=== PATIENT | female | born 1970 | race African-American/Black ===

== ENCOUNTER 2017-03-30 14:36 | Inpatient (IN) | payer SELFPAY ==
[~2017-03-30] VITALS: Ht 160 cm; Wt 74.8 kg
--- NOTE | 2017-03-30 15:14 | EKG ---
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
[2017-03-30 15:26] LABS: BASO % 0 % (0-3); EOS % 0 % (0-3); HEMATOCRIT 26.1 % (36.0-47.0); HEMOGLOBIN 8.9 g/dL (12.0-15.5); LYMPH # 0.6 x10^3/uL (1.0-4.8); LYMPH % 8 % (24-48); MEAN CORPUSCULAR HEMOGLOBIN 36 pg (25-35); MEAN CORPUSCULAR HGB CONC 34 g/dL (31-37); MEAN CORPUSCULAR VOLUME 105 fL (79-100); MONO % 3 % (0-9); NEUT % 88 % (31-73); PLATELET COUNT 124 x10^3/uL (140-400); RED BLOOD COUNT 2.49 x10^6/uL (3.50-5.40); RED CELL DISTRIBUTION WIDTH 15.9 % (11.5-14.5); WHITE BLOOD COUNT 6.8 x10^3/uL (4.0-11.0)
[2017-03-30 15:27] LABS: BILIRUBIN,URINE SMALL (NEG); GLUCOSE,URINE NEGATIVE (NEG); NITRITE,URINE POSITIVE (NEG); PROTEIN,URINE >=300 mg/dL (NEG-TRACE)
--- NOTE | 2017-03-30 15:29 | RAD ---
Indication: Cough and low blood pressure. Time of exam 1317 hours. Correlation is made with prior study from 07/10/2010. FINDINGS: The heart size is normal. The lungs are clear. No pleural effusion or pneumothorax is identified. The pulmonary vascularity is normal. IMPRESSION: No acute abnormality detected.
[2017-03-30] MEDS ORDERED: ACETAMINOPHEN 500 MG TABLET PO ONE (15:30)
[2017-03-30] MEDS: IV NORMAL SALINE 1000ML BAG 1,000 ML IV SCH ×3 (15:33→18:12)
[2017-03-30 15:38] LABS: BACTERIA,URINE MANY /HPF (0-FEW); WBC,URINE >40 /HPF (0-4)
--- NOTE | 2017-03-30 15:40 | PHYS DOC ---
Past Medical History Past Medical History: Alcoholism, Depression, Hypertension, Seizure Additional Past Surgical Histo: facial fracture Alcohol Use: Heavy Additional Information: pint per day Drug Use: None Adult General Chief Complaint Chief Complaint: FEVER HPI HPI Patient is a 46 year old female who presents with complaint of cough, fever, and dysuria for the past 2 days. Patient states she started having trouble 5 days ago with cough and throat dryness. Patient develop fevers starting yesterday and has had worsening difficulty with generalized weakness, fatigue, and dehydration. Patient states that she's had decreased appetite. Patient notes that she is having upper abdominal pain at this time which she attributes to not being able to eat. Patient denies any shortness of breath or chest pain at this time. The patient states that she may have urinary tract infection as she has had increased urinary frequency and dysuria. Patient has not taken any medications to help with symptoms at this time. Review of Systems Review of Systems Constitutional: Fever, generalized fatigue [] Eyes: Denies change in visual acuity, redness, or eye pain [] HENT: Denies nasal congestion or sore throat [] Respiratory: Cough [] Cardiovascular: Denies chest pain or edema [] GI: Abdominal pain, denies nausea, vomiting, bloody stools or diarrhea [] : Dysuria, increased urinary frequency [] Musculoskeletal: Denies back pain or joint pain [] Integument: Denies rash or skin lesions [] Neurologic: Denies headache, focal weakness or sensory changes [] Current Medications Current Medications Current Medications Medications (Trade) Dose Ordered Sig/[facility] Start Time Stop Time Status Last Admin Dose Admin Acetaminophen (Tylenol) 1,000 mg 1X ONCE 03/30/17 15:30 03/30/17 15:31 DC 03/30/17 15:34 1,000 MG Sodium Chloride 1,000 ml @ 1,095 mls/hr Q55M 03/30/17 15:09 03/30/17 17:09 DC 03/30/17 16:17 1,095 MLS/HR Allergies Allergies Allergies Coded Allergies Type Severity Reaction Last Updated Verified No Known Drug Allergies 03/30/17 No Physical Exam Physical Exam Constitutional: Alert, febrile, tachycardic, appears ill. [] HENT: Normocephalic, atraumatic, bilateral external ears normal, oropharynx moist, no oral exudates, nose normal. [] Eyes: PERRLA, EOMI, conjunctiva normal, no discharge. [] Neck: Normal range of motion, no tenderness, supple, no stridor. [] Cardiovascular: Tachycardia, regular rhythm, no murmur [] Lungs & Thorax: Bilateral breath sounds clear to auscultation [] Abdomen: Bowel sounds normal, soft, epigastric tenderness to palpation with guarding, no rebound tenderness, no masses, no pulsatile masses. [] Skin: Warm, dry, no erythema, no rash. [] Back: No tenderness, no CVA tenderness. [] Extremities: No tenderness, no cyanosis, no clubbing, ROM intact, no edema. [] Neurologic: Alert and oriented X 3, normal motor function, normal sensory function, no focal deficits noted. [] Current Patient Data Vital Signs Vital Signs Date Time Temp Pulse Resp B/P (MAP) Pulse Ox O2 Delivery O2 Flow Rate FiO2 03/30/17 16:00 127 122/66 (84) 100 Room Air 03/30/17 14:45 100.3 20 100.3 Lab Values Laboratory Tests Test 03/30/17 14:55 White Blood Count 6.8 x10^3/uL (4.0-11.0) Red Blood Count 2.49 x10^6/uL (3.50-5.40) L Hemoglobin 8.9 g/dL (12.0-15.5) L Hematocrit 26.1 % (36.0-47.0) L Mean Corpuscular Volume 105 fL (79-100) H Mean Corpuscular Hemoglobin 36 pg (25-35) H Mean Corpuscular Hemoglobin Concent 34 g/dL (31-37) Red Cell Distribution Width 15.9 % (11.5-14.5) H Platelet Count 124 x10^3/uL (140-400) L Neutrophils (%) (Auto) 88 % (31-73) H Lymphocytes (%) (Auto) 8 % (24-48) L Monocytes (%) (Auto) 3 % (0-9) Eosinophils (%) (Auto) 0 % (0-3) Basophils (%) (Auto) 0 % (0-3) Neutrophils # (Auto) 6.0 x10^3uL (1.8-7.7) Lymphocytes # (Auto) 0.6 x10^3/uL (1.0-4.8) L Monocytes # (Auto) 0.2 x10^3/uL (0.0-1.1) Eosinophils # (Auto) 0.0 x10^3/uL (0.0-0.7) Basophils # (Auto) 0.0 x10^3/uL (0.0-0.2) Segmented Neutrophils % 56 % (35-66) Band Neutrophils % 33 % (0-9) H Lymphocytes % 6 % (24-48) L Monocytes % 5 % (0-10) Toxic Granulation Present Toxic Vacuolation Present Dohle Bodies Present Platelet Estimate Adequate (ADEQUATE) Macrocytosis Slight Urine Collection Type Unknown Urine Color [place] Urine Clarity Cloudy Urine pH 7.0 Urine Specific [place] 1.015 Urine Protein >=300 mg/dL (NEG-TRACE) Urine Glucose (UA) Negative mg/dL (NEG) Urine Ketones (Stick) Negative mg/dL (NEG) Urine Blood Moderate (NEG) Urine Nitrite Positive (NEG) Urine Bilirubin Small (NEG) Urine Urobilinogen Dipstick 1.0 mg/dL (0.2 mg/dL) Urine Leukocyte Esterase Large (NEG) Urine RBC 3-5 /HPF (0-2) Urine WBC >40 /HPF (0-4) Urine Bacteria Many /HPF (0-FEW) Sodium Level 138 mmol/L (136-145) Potassium Level 2.2 mmol/L (3.5-5.1) *L Chloride Level 95 mmol/L (98-107) L Carbon Dioxide Level 30 mmol/L (21-32) Anion Gap 13 (6-14) Blood Urea Nitrogen 14 mg/dL (7-20) Creatinine 1.0 mg/dL (0.6-1.0) Estimated GFR (Cockcroft-Gault) 71.9 BUN/Creatinine Ratio 14 (6-20) Glucose Level 121 mg/dL (70-99) H Lactic Acid Level 3.9 mmol/L (0.4-2.0) H Calcium Level 7.7 mg/dL (8.5-10.1) L Total Bilirubin 1.6 mg/dL (0.2-1.0) H Aspartate Amino Transferase (AST) 78 U/L (15-37) H Alanine Aminotransferase (ALT) 35 U/L (14-59) Alkaline Phosphatase 260 U/L (46-116) H Total Protein 7.7 g/dL (6.4-8.2) Albumin 2.5 g/dL (3.4-5.0) L Albumin/Globulin Ratio 0.5 (1.0-1.7) L Procalcitonin 1.43 ng/mL (0.00-0.10) H Laboratory Tests 03/30/17 14:55 Laboratory Tests 03/30/17 14:55 EKG EKG Interpreted by me: Heart rate 149 bpm, sinus tachycardia, normal intervals, normal axis, no acute ST/T-wave abnormalities present [] Radiology/Procedures Radiology/Procedures [place] [id number] IMAGING REPORT Signed PATIENT: MU OSMAN ACCOUNT: [id number] : 1970 LOCATION: ER AGE: 46 SEX: F EXAM STATUS: PRE ER ORD. PHYSICIAN: HALIE MERAZ MD REASON: cough, fever PROCEDURE: PORTABLE CHEST 1V Indication: Cough and low blood pressure. Time of exam 1317 hours. Correlation is made with prior study from 07/10/2010. FINDINGS: The heart size is normal. The lungs are clear. No pleural effusion or pneumothorax is identified. The pulmonary vascularity is normal. IMPRESSION: No acute abnormality detected. DICTATED and SIGNED BY: VANNA RAI MD DATE: 03/30/17 152 CC: HALIE MERAZ MD ~ [address] [id number] IMAGING REPORT Signed PATIENT: MU OSMAN ACCOUNT: [id number] : 1970 LOCATION: [address] [place] [address] AGE: 46 SEX: F EXAM STATUS: ADM IN ORD. PHYSICIAN: HALIE MERAZ MD REASON: fever, epigastric pain PROCEDURE: CT ABD PELV W/ IV CONTRST ONLY CT Abdomen and Pelvis With Intravenous Contrast: History: Weakness and fever, epigastric pain for 4 days. Comparison: None. Technique: After administration of intravenous contrast administration, 75 mL Omnipaque-300, CT of the abdomen and pelvis was performed. Exposure: One or more of the following individualized dose reduction techniques were utilized for this examination: 1. Automated exposure control 2. Adjustment of the mA and/or kV according to patient size 3. Use of iterative reconstruction technique Findings: Evaluation of enteric structures may be limited by lack of oral contrast. Liver, spleen, pancreas, and bilateral adrenal glands are unremarkable. Cholelithiasis is seen. No bowel obstruction or inflammation is identified. Urinary bladder is unremarkable. Intrauterine device is present. Appendix is without evidence of inflammation. The left kidney appears mildly enlarged and demonstrates slightly heterogeneous phase of enhancement relative to the contralateral side. There is also mild left perinephric stranding. Findings are thought to represent changes of pyelonephritis. No convincing urinary stone is identified. Impression: 1. Mild inflammatory change involving the left kidney, favored to represent left pyelonephritis. Electronically signed by: Romero Loja MD (03/30/2017 5:09 PM) DICTATED and SIGNED BY: ROMERO LOJA MD DATE: 03/30/171703 CC: HALIE MERAZ MD; AICHA MONTENEGRO MD; UNKNOWN PCP NAME ~ [] Course & Med Decision Making Course & Med Decision Making Pertinent Labs and Imaging studies reviewed. (See chart for details) Patient was started on a 30 mL per kilo bolus of IV fluids as patient met criteria for severe sepsis with elevated lactic acid level, fever, and tachycardia. Patient's tachycardia is improving with IV fluids. Patient also started on 40 mEq of oral potassium for replacement. Patient was found have evidence of urinary tract infection. CT confirmed left sided acute pyelonephritis. Patient started on IV Rocephin. The patient will require admission to the hospital for further treatment. I spoke with Dr. Montenegro who accepted care patient in hospital. Critical care time excluding procedures: 45 minutes Dragon Disclaimer Dragon Disclaimer This electronic medical record was generated, in whole or in part, using a voice recognition dictation system. Departure Departure Impression: Primary Impression: Severe sepsis Additional Impressions: Acute pyelonephritis Macrocytic anemia Hypokalemia Severe protein-calorie malnutrition Disposition: ADMITTED INPATIENT Admitting Physician: Aicha Montenegro Condition: GUARDED Referrals: UNKNOWN PCP NAME (PCP) Problem Qualifiers HALIE MERAZ MD Mar 30, 2017 15:39
[2017-03-30 15:47] LABS: ALBUMIN 2.5 g/dL (3.4-5.0); ALBUMIN/GLOBULIN RATIO 0.5 (1.0-1.7); CALCIUM 7.7 mg/dL (8.5-10.1); GFR 71.9; TOTAL BILIRUBIN 1.6 mg/dL (0.2-1.0); TOTAL PROTEIN 7.7 g/dL (6.4-8.2)
[2017-03-30 15:57] LABS: POTASSIUM 2.2 mmol/L (3.5-5.1)
[2017-03-30] MEDS ORDERED: POTASSIUM CHLORIDE 20 MEQ TABLET.ER. PO ONE (16:30)
[2017-03-30] MEDS ORDERED: CONTRAST GIVEN MC PRN (16:30)
[2017-03-30] MEDS ORDERED: IOHEXOL 300 MG/ML 75 ML VIAL IV ONE (16:30)
[2017-03-30 16:33] LABS: TOXIC GRANULATION PRESENT; TOXIC VACUOLATION PRESENT
[2017-03-30 16:35] LABS: PLT ESTIMATE ADEQUATE (ADEQUATE)
[2017-03-30] MEDS ORDERED: IV NORMAL SALINE 1000ML BAG 1,000 ML IV SCH (17:08)
--- NOTE | 2017-03-30 17:12 | RAD ---
CT Abdomen and Pelvis With Intravenous Contrast: History: Weakness and fever, epigastric pain for 4 days. Comparison: None. Technique: After administration of intravenous contrast administration, 75 mL Omnipaque-300, CT of the abdomen and pelvis was performed. Exposure: One or more of the following individualized dose reduction techniques were utilized for this examination: 1. Automated exposure control 2. Adjustment of the mA and/or kV according to patient size 3. Use of iterative reconstruction technique Findings: Evaluation of enteric structures may be limited by lack of oral contrast. Liver, spleen, pancreas, and bilateral adrenal glands are unremarkable. Cholelithiasis is seen. No bowel obstruction or inflammation is identified. Urinary bladder is unremarkable. Intrauterine device is present. Appendix is without evidence of inflammation. The left kidney appears mildly enlarged and demonstrates slightly heterogeneous phase of enhancement relative to the contralateral side. There is also mild left perinephric stranding. Findings are thought to represent changes of pyelonephritis. No convincing urinary stone is identified. Impression: 1. Mild inflammatory change involving the left kidney, favored to represent left pyelonephritis. Electronically signed by: Romero Bae MD (03/30/2017 5:09 PM)
[2017-03-30] MEDS ORDERED: ONDANSETRON PF 4 MG/2 ML VIAL. IV PRN (17:15)
[2017-03-30] MEDS ORDERED: ACETAMINOPHEN 325 MG TABLET. PO PRN (17:15)
[2017-03-30] MEDS ORDERED: MAGNESIUM SULFATE 2GM 50 ML IV ONE (18:00)
--- NOTE | 2017-03-30 18:05 | PDOC1 ---
History and Physical Date of Admission Date of Admission DATE: 03/30/17 TIME: 17:51 Identification/Chief Complaint Chief Complaint abd pain, nausea Problems: Source Source: Chart review, Patient History of Present Illness History of Present Illness Ms. Bermudez, is a 46 year old female admit with acute abd pain, fever, and dysuria for the past 2 days. 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, did not feel well, and has had abd pain for 5 days also, sore throat, recent cough that is better, she reports that was from too much EtOH at a family reunion a week ago, she feels much better now than she did 2 hours ago in the ER, pain 4/10, was worse on presentation CT abd done due to acute abd pain, showed right Pyelo Past Medical History Cardiovascular: No pertinent hx Pulmonary: No pertinent hx GI: No pertinent hx Heme/Onc: No pertinent hx Hepatobiliary: No pertinent hx Psych: No pertinent hx Family History Family History: Hypertension Social History Smoke: <1 pack per day ALCOHOL: none Drugs: None Current Problem List Problem List Problems Medical Problems: (1) Acute pyelonephritis Status: Acute (2) Hypokalemia Status: Acute (3) Macrocytic anemia Status: Acute (4) Severe protein-calorie malnutrition Status: Acute (5) Urinary tract infection Status: Acute Problems: Current Medications Current Medications Current Medications Sodium Chloride 1,000 ml @ 1,095 mls/hr Q55M IV Last administered on 16:17; Start 03/30/17 at 15:09; Stop 03/30/17 at 17:09; Status DC Acetaminophen (Tylenol) 1,000 mg 1X ONCE PO Last administered on 03/30/17 15: 34; Start 03/30/17 at 15:30; Stop 03/30/17 at 15:31; Status DC Potassium Chloride (Klor-Con) 40 meq 1X ONCE PO Last administered on 16:32; Start 03/30/17 at 16:30; Stop 03/30/17 at 16:31; Status DC Iohexol (Omnipaque 300 Mg/ml) 75 ml 1X ONCE IV Last administered on 03/30/17 16:36; Start 03/30/17 at 16:30; Stop 03/30/17 at 16:31; Status DC Info (Do NOT chart on this entry -- for MONITORING) 1 each PRN DAILY PRN MC SEE COMMENTS; Start 03/30/17 at 16:30; Stop 04/01/17 at 16:29 Ceftriaxone Sodium 1 gm/ Sodium Chloride 50 ml @ 100 mls/hr Q24H IV ; Start at 18:00 Ondansetron HCl (Zofran) 4 mg PRN Q8HRS PRN IV NAUSEA/VOMITING; Start 03/30/17 at 17:15; Stop 03/31/17 at 17:14 Fentanyl Citrate (Fentanyl 2ml Vial) 50 mcg PRN Q2HR PRN IV PAIN; Start at 17:15; Stop 03/31/17 at 17:14 Sodium Chloride 1,000 ml @ 150 mls/hr Q6H40M IV ; Start 03/30/17 at 17:08; Stop 03/31/17 at 17:07 Acetaminophen (Tylenol) 650 mg PRN Q4HRS PRN PO FEVER; Start 03/30/17 at 17:15 ; Stop 03/31/17 at 17:14 Allergies Allergies: Coded Allergies: No Known Drug Allergies (Unverified , 03/30/17) ROS General: No: Chills, Night Sweats, Fatigue, Malaise, Appetite, Other PSYCHOLOGICAL ROS: No: Anxiety, Behavioral Disorder, Concentration difficultie , Decreased libido, Depression, Disorientation, Hallucinations, Hostility, Irritablity, Memory difficulties, Mood Swings, Obsessive thoughts, Physical abuse, Sexual abuse, Sleep disturbances, Suicidal ideation, Other Eyes: No Blurry vision, No Decreased vision, No Double vision, No Dry eyes, No Excessive tearing, No Eye Pain, No Itchy Eyes, No Loss of vision, No Photophobia , No Scotomata, No Uses contacts, No Uses glasses, No Other HEENT: No: Heacaches, Visual Changes, Hearing change, Nasal congestion, Nasal discharge, Oral lesions, Sinus pain, Sore Throat, Epistaxis, Sneezing, Snoring, Tinnitus, Vertigo, Vocal changes, Other Respiratory: No: Cough, Hemoptysis, Orthopnea, Pleuritic Pain, Shortness of breath, SOB with excertion, Sputum Changes, Stridor, Tachypnea, Wheezing, Other Cardiovascular: No Chest Pain, No Palpitations, No Orthopnea, No Paroxysmal Noc. Dyspnea, No Edema, No Lt Headedness, No Other Gastrointestinal: Yes Nausea, Yes Abdominal Pain, Yes Diarrhea, No Vomiting, No Constipation, No Melena, No Hematochezia, No Other Genitourinary: YES Dysuria, YES Frequency, YES Urgency, YES Pain, YES Flank Pain, No Incontinence, No Hematuria, No Retention, No Other, No , No , No , No , No , No , No Musculoskeletal: No Gait Disturbance, No Joint Pain, No Joint Stiffness, No Joint Swelling, No Muscle Pain, No Muscular Weakness, No Pain In:, No Swelling In:, No Other Neurological: No Behavorial Changes, No Bowel/Bladder ControlChng, No Confusion , No Dizziness, No Gait Disturbance, No Headaches, No Impaired Coord/balance, No Memory Loss, No Numbness/Tingling, No Seizures, No Speech Problems, No Tremors, No Visual Changes, No Weakness, No Other Skin: No Dry Skin, No Eczema, No Hair Changes, No Lumps, No Mole Changes, No Mottling, No Nail Changes, No Pruritus, No Rash, No Skin Lesion Changes, No Other, No Acne Physical Exam General: Alert, Oriented X3, Cooperative, mild distress (abd pain) HEENT: Atraumatic, PERRLA Lungs: Clear to auscultation, Normal air movement Heart: S1S2, no gallops, no murmurs Abdomen: Normal bowel sounds, Soft (very tender, mid to right to palpation, guarded, no rebound) Rectal Exam: not examined Extremities: No clubbing, No cyanosis, No edema, Normal pulses Skin: No rashes, No breakdown Neuro: Normal speech, Normal tone, Sensation intact, Cranial nerves 3-12 NL Psych/Mental Status: Mood NL Vitals Vitals Vital Signs Date Time Temp Pulse Resp B/P (MAP) Pulse Ox O2 Delivery O2 Flow Rate FiO2 03/30/17 16:59 99.7 99.7 03/30/17 16:48 118 118/69 (85) 100 Room Air 03/30/17 14:45 20 Labs Labs Laboratory Tests Test 03/30/17 14:55 White Blood Count 6.8 x10^3/uL (4.0-11.0) Red Blood Count 2.49 x10^6/uL (3.50-5.40) Hemoglobin 8.9 g/dL (12.0-15.5) Hematocrit 26.1 % (36.0-47.0) Mean Corpuscular Volume 105 fL (79-100) Mean Corpuscular Hemoglobin 36 pg (25-35) Mean Corpuscular Hemoglobin Concent 34 g/dL (31-37) Red Cell Distribution Width 15.9 % (11.5-14.5) Platelet Count 124 x10^3/uL (140-400) Neutrophils (%) (Auto) 88 % (31-73) Lymphocytes (%) (Auto) 8 % (24-48) Monocytes (%) (Auto) 3 % (0-9) Eosinophils (%) (Auto) 0 % (0-3) Basophils (%) (Auto) 0 % (0-3) Neutrophils # (Auto) 6.0 x10^3uL (1.8-7.7) Lymphocytes # (Auto) 0.6 x10^3/uL (1.0-4.8) Monocytes # (Auto) 0.2 x10^3/uL (0.0-1.1) Eosinophils # (Auto) 0.0 x10^3/uL (0.0-0.7) Basophils # (Auto) 0.0 x10^3/uL (0.0-0.2) Segmented Neutrophils % 56 % (35-66) Band Neutrophils % 33 % (0-9) Lymphocytes % 6 % (24-48) Monocytes % 5 % (0-10) Toxic Granulation Present Toxic Vacuolation Present Dohle Bodies Present Platelet Estimate Adequate (ADEQUATE) Macrocytosis Slight Urine Collection Type Unknown Urine Color [place] Urine Clarity Cloudy Urine pH 7.0 Urine Specific [place] 1.015 Urine Protein >=300 mg/dL (NEG-TRACE) Urine Glucose (UA) Negative mg/dL (NEG) Urine Ketones (Stick) Negative mg/dL (NEG) Urine Blood Moderate (NEG) Urine Nitrite Positive (NEG) Urine Bilirubin Small (NEG) Urine Urobilinogen Dipstick 1.0 mg/dL (0.2 mg/dL) Urine Leukocyte Esterase Large (NEG) Urine RBC 3-5 /HPF (0-2) Urine WBC >40 /HPF (0-4) Urine Bacteria Many /HPF (0-FEW) Sodium Level 138 mmol/L (136-145) Potassium Level 2.2 mmol/L (3.5-5.1) Chloride Level 95 mmol/L (98-107) Carbon Dioxide Level 30 mmol/L (21-32) Anion Gap 13 (6-14) Blood Urea Nitrogen 14 mg/dL (7-20) Creatinine 1.0 mg/dL (0.6-1.0) Estimated GFR (Cockcroft-Gault) 71.9 BUN/Creatinine Ratio 14 (6-20) Glucose Level 121 mg/dL (70-99) Lactic Acid Level 3.9 mmol/L (0.4-2.0) Calcium Level 7.7 mg/dL (8.5-10.1) Total Bilirubin 1.6 mg/dL (0.2-1.0) Aspartate Amino Transf (AST/SGOT) 78 U/L (15-37) Alanine Aminotransferase (ALT/SGPT) 35 U/L (14-59) Alkaline Phosphatase 260 U/L (46-116) Total Protein 7.7 g/dL (6.4-8.2) Albumin 2.5 g/dL (3.4-5.0) Albumin/Globulin Ratio 0.5 (1.0-1.7) Procalcitonin 1.43 ng/mL (0.00-0.10) Laboratory Tests Test 03/30/17 14:55 White Blood Count 6.8 x10^3/uL (4.0-11.0) Red Blood Count 2.49 x10^6/uL (3.50-5.40) Hemoglobin 8.9 g/dL (12.0-15.5) Hematocrit 26.1 % (36.0-47.0) Mean Corpuscular Volume 105 fL (79-100) Mean Corpuscular Hemoglobin 36 pg (25-35) Mean Corpuscular Hemoglobin Concent 34 g/dL (31-37) Red Cell Distribution Width 15.9 % (11.5-14.5) Platelet Count 124 x10^3/uL (140-400) Neutrophils (%) (Auto) 88 % (31-73) Lymphocytes (%) (Auto) 8 % (24-48) Monocytes (%) (Auto) 3 % (0-9) Eosinophils (%) (Auto) 0 % (0-3) Basophils (%) (Auto) 0 % (0-3) Neutrophils # (Auto) 6.0 x10^3uL (1.8-7.7) Lymphocytes # (Auto) 0.6 x10^3/uL (1.0-4.8) Monocytes # (Auto) 0.2 x10^3/uL (0.0-1.1) Eosinophils # (Auto) 0.0 x10^3/uL (0.0-0.7) Basophils # (Auto) 0.0 x10^3/uL (0.0-0.2) Segmented Neutrophils % 56 % (35-66) Band Neutrophils % 33 % (0-9) Lymphocytes % 6 % (24-48) Monocytes % 5 % (0-10) Toxic Granulation Present Toxic Vacuolation Present Dohle Bodies Present Platelet Estimate Adequate (ADEQUATE) Macrocytosis Slight Urine Collection Type Unknown Urine Color [place] Urine Clarity Cloudy Urine pH 7.0 Urine Specific [place] 1.015 Urine Protein >=300 mg/dL (NEG-TRACE) Urine Glucose (UA) Negative mg/dL (NEG) Urine Ketones (Stick) Negative mg/dL (NEG) Urine Blood Moderate (NEG) Urine Nitrite Positive (NEG) Urine Bilirubin Small (NEG) Urine Urobilinogen Dipstick 1.0 mg/dL (0.2 mg/dL) Urine Leukocyte Esterase Large (NEG) Urine RBC 3-5 /HPF (0-2) Urine WBC >40 /HPF (0-4) Urine Bacteria Many /HPF (0-FEW) Sodium Level 138 mmol/L (136-145) Potassium Level 2.2 mmol/L (3.5-5.1) Chloride Level 95 mmol/L (98-107) Carbon Dioxide Level 30 mmol/L (21-32) Anion Gap 13 (6-14) Blood Urea Nitrogen 14 mg/dL (7-20) Creatinine 1.0 mg/dL (0.6-1.0) Estimated GFR (Cockcroft-Gault) 71.9 BUN/Creatinine Ratio 14 (6-20) Glucose Level 121 mg/dL (70-99) Lactic Acid Level 3.9 mmol/L (0.4-2.0) Calcium Level 7.7 mg/dL (8.5-10.1) Total Bilirubin 1.6 mg/dL (0.2-1.0) Aspartate Amino Transf (AST/SGOT) 78 U/L (15-37) Alanine Aminotransferase (ALT/SGPT) 35 U/L (14-59) Alkaline Phosphatase 260 U/L (46-116) Total Protein 7.7 g/dL (6.4-8.2) Albumin 2.5 g/dL (3.4-5.0) Albumin/Globulin Ratio 0.5 (1.0-1.7) Procalcitonin 1.43 ng/mL (0.00-0.10) VTE Prophylaxis Ordered VTE Prophylaxis Devices: Yes VTE Pharmacological Prophylaxi: No Assessment/Plan Assessment/Plan tachycardia only, sepsis with lactic acidosis, no leukocytosis, T< 38, no tachypnea UTI pyelonephritis IV abx, aggressive fluid hypokalemia, replace po and mag moderate malnutrition tobaccoism, cessation discussed admit ILDA MONTENEGRO MD Mar 30, 2017 18:05
[2017-03-30] MEDS ORDERED: NICOTINE 7MG PATCH. TD PRN (18:15)
[2017-03-30] MEDS ORDERED: POTASSIUM CHLORIDE 20 MEQ/15 ML ORAL LIQUID. PO ONE (18:30)
[2017-03-30] MEDS: THIAMINE 100 MG TABLET. PO SCH (18:37)
[2017-03-30] MEDS: FOLIC/VIT B COMP W-C (RENAL) TABLET. PO SCH (18:37)
[2017-03-30 19:15] VITALS: BP 125/84
[2017-03-30] MEDS ORDERED: QUET100T4 PO (19:41)
[2017-03-30] MEDS: fentaNYL PF VIAL 100 MCG/2 ML VIAL IV PRN (20:41)
[2017-03-30] MEDS: ZOLPIDEM 5 MG TABLET. PO PRN (20:41)
[2017-03-30 22:52] VITALS: BP 94/61
--- NOTE | 2017-03-31 00:29 | ACF ---
Admission Forms Criteria SEVERE SEPSIS Clinical Indications for Admission to Inpatient Care (Place 'X' for any and all applicable criteria): Hospital admission is needed for appropriate care of the patient because of ANY ONE of the following: [X]I. Hemodynamic instability indicated by ANY ONE of the following(1)(2)(3)( 4)(5): []a. Vital sign abnormality not readily corrected by appropriate treatment within 12 to 24 hours indicated by ANY ONE of the following: []i) Tachycardia that persists despite appropriate treatment []ii) Hypotension that persists despite appropriate treatment []iii) Orthostatic vital sign changes that persist despite appropriate treatment [X]b. Vital sign abnormality that is severe indicated by ANY ONE of the following: [X]i. Inadequate perfusion indicated by ANY ONE of the following: [X]1) Lactic acidosis (greater than 2 mmol/L) []2) New abnormal capillary refill (greater than 3 seconds) []3) Reduced urine output []4) New altered mental status []5) Myocardial Ischemia []ii. Mean arterial pressure [A] less than 60 mm Hg []iii. Mean arterial pressure[A] less than 70 mm Hg after 30 minutes of appropriate treatment (eg, fluid resuscitation) []iv. Sustained heart rate greater than 120 beats per minute in adult []v. IV inotropic or vasopressor medication required to maintain adequate blood pressure or perfusion []II. Systemic or infectious condition causing severe symptoms or findings not responsive to emergency or observation care treatment (as appropriate) indicated by ANY ONE of the following: []a. Cardiac arrhythmias of immediate concern(1)(2)(3) []b. Severe endocrine disorder (eg, thyrotoxicosis, adrenal insufficiency)(4)(5) []c. Seizures (eg, new or recurrent)(6) []d. New-onset end organ failure or dysfunction as indicated by ANY ONE of the following: []i. Acute unexplained hypoxemia (eg, not from lung infection or chronic disease)(7)(8)(9) []ii. Acute renal failure as indicated by new onset of ANY ONE of the following(10)(11)(12)(13)(14): []1) 3-fold rise in serum creatinine from baseline []2) Serum creatinine greater than 4 mg/dL (354 micromoles/L) with acute rise greater than 0.5 mg/dL (44.2 micromoles/L) []3) Reduction of more than 75% in estimated glomerular filtration rate from baseline. []4) Estimated glomerular filtration rate less than 35 mL/min/1.73m2 ( 0.59 mL/sec/1.73m2) in child younger than 18 years. []5) Cessation of urine output indicated by ALL of the following: []A. Adequate volume status []B. Inadequate urine output as indicated by ANY ONE of the following: []a. Urine output less than 0.3 mL/kg/hr for 24 hours []b. Anuria (urine output less than 0.1 mL/kg/hr) for 12 hours []iii. Acute mental status changes(15) []iv. Acute hepatic failure (eg, plasma bilirubin greater than 4 mg/ dL (68 micromoles/L), new INR greater than 2.0)(16)(17) []e. Unmanageable nausea and vomiting(18) []f. New-onset or uncontrolled central diabetes insipidus(19)(20) []g. Clinically significant dehydration(18)(21) []h. Hypoglycemia(22) []i. Acidosis (pH less than 7.35) or alkalosis (pH greater than 7.45)( 22)(23) []j. Toxic drug level that indicates need for specific monitoring or treatment(24)(25) []k. Severe electrolyte abnormalities indicated by ALL of the following( 1)(2)(3): []i. Electrolytes and associated findings are not as expected for patient baseline or acceptable treatment effects. []ii. Severe abnormalities indicated by ANY ONE of the following: []1) Sodium less than 130 mEq/L (mmol/L) (new) []2) Sodium less than 135 mEq/L (mmol/L) with ANY ONE of the following: []A. Uncorrectable (to near normal or chronic baseline) after trial of outpatient and emergency treatment []B. Altered mental status []C. Seizures []D. Severe medical etiology requiring inpatient management (eg , heart failure, hypovolemia) []3) Sodium greater than 155 mEq/L (mmol/L) []4) Sodium greater than 150 mEq/L (mmol/L) with ANY ONE of the following: []A. Uncorrectable (to near normal or chronic baseline) with outpatient and emergency treatment []B. Altered mental status []C. Seizures []D. Severe medical etiology (eg, hypovolemia, diabetes insipidus) []5) Potassium less than 2.5 mEq/L (mmol/L) despite outpatient and emergency treatment []6) Potassium less than 3 mEq/L (mmol/L) with ANY ONE of the following : []A. Weakness []B. Cardiac abnormality (eg, arrhythmia, conduction disturbance ) []C. Cardiac ischemia []D. Ileus []E. Ongoing medical cause requiring inpatient management (eg, acute renal wasting or SIADH) []F. Other severe symptoms []7) Potassium greater than 6.5 mEq/L (mmol/L) []8) Potassium greater than 5 mEq/L (mmol/L) with ANY ONE of the following: []A. Uncorrectable (to near normal or chronic baseline) with outpatient and emergency treatment []B. Severe ECG findings[A] []C. Acute worsening of renal failure (creatinine greater than 2.5 mg/dL (221 micromoles/L) or significant elevation for age and size) []D. Severe weakness []E. Severe medical etiology (eg, hemolysis, infection, drug overdose) []9) Calcium less than 7 mg/dL (1.75 mmol/L) despite outpatient and emergency treatment(5) []10) Calcium less than 8 mg/dL (2 mmol/L) with significant symptoms or findings (eg, altered mental status, muscle spasms, seizures, breathing difficulty, cardiac abnormality (eg, arrhythmia or conduction disturbance))(5) []11) Calcium greater than 14 mg/dL (3.5 mmol/L)(5) []12) Calcium greater than 12 mg/dL (3 mmol/L) with ANY ONE of the following(5): []A. Uncorrectable (to near normal or chronic baseline) with outpatient and emergency treatment []B. Significant dehydration or hypovolemia as indicated by ALL of the following(3)(6)(7): []a. Not resolved with initial treatments []b. Clinically significant dehydration as indicated by ANY ONE of the following: [](1) Vomiting refractory to outpatient treatment (ie, precluding oral rehydration) [](2) Inability to drink [](3) Hypernatremia or other electrolyte abnormality unable to be corrected with outpatient and emergency treatment [](4) Failure to remain hydrated with outpatient therapy [](5) Reduced urine output [](6) Hypotension [](7) Serious cause for dehydration requiring acute hospitalization ( eg, bowel obstruction, increased intracranial pressure, infectious cause) [](8) Child with ANY ONE of the following(8): [](i) Severe abdominal tenderness [](ii) Adequate care not available at home [](iii) Severe dehydration (greater than 9% loss of body weight) []C. Significant symptoms or findings (eg, altered mental status , cardiac abnormality (eg, arrhythmia, conduction disturbance), malignant etiology requiring inpatient treatment) []13) Phosphorus less than 1 mg/dL (0.32 mmol/L) []14) Phosphorus less than 1.5 mg/dL (0.48 mmol/L) with ANY ONE of the following: []A. Patient unresponsive to outpatient and emergency treatment []B. Significant symptoms or findings (eg, weakness, altered mental status, breathing difficulty, seizures, rhabdomyolysis) []15) Phosphorus greater than 10 mg/dL (3.2 mmol/L) []16) Phosphorus greater than 4.5 mg/dL (1.45 mmol/L) (new) with ANY ONE of the following: []A. Severe medical etiology (eg, crush injury, acute renal failure) []B. Associated hypocalcemia with significant findings (eg, neurologic symptoms, altered mental status, muscle spasms, seizures, breathing difficulty, cardiac abnormality (eg, arrhythmia, conduction disturbance)) []16) Magnesium less than 1 mg/dL (0.41 mmol/L) []17) Magnesium less than 1.5 mg/dL (0.62 mmol/L) with ANY ONE of the following: []A. Patient unresponsive to outpatient and emergency treatment []B. Associated hypocalcemia with significant findings (eg, altered mental status, muscle spasms, seizures, breathing difficulty, cardiac abnormality (eg, arrhythmia, conduction disturbance)) []C. Associated hypokalemia (potassium less than 3 mEq/L (mmol/L )) with risk of arrhythmia []18) Magnesium greater than 4 mEq/L (2 mmol/L) []19) Magnesium greater than 2.5 mEq/L (1.25 mmol/L) with significant symptoms or findings (eg, weakness, altered mental status, cardiac abnormality (eg, arrhythmia, conduction disturbance), breathing difficulty, severe medical etiology (eg, renal failure, hypovolemia)) []20) Uric acid greater than 20 mg/dL (1190 micromoles/L)(9) []21) Uric acid greater than 8 mg/dL (476 micromoles/L) with significant symptoms or findings of tumor lysis syndrome (eg, creatinine greater than 1.5 times upper limit of normal, cardiac abnormality (eg , arrhythmia, conduction disturbance), seizure)(9) []III. High fever or other high-risk infection situation as indicated by ANY ONE of the following(26)(27)(28): []a. Outpatient and observation care antimicrobial treatment unavailable, not effective, or not appropriate []b. Documented bacteremia []c. Temperature greater than 104.9 degrees F (40.5 degrees C) (oral) []d. Temperature greater than 103.1 degrees F (39.5 degrees C) (oral) or less than 96.8 degrees F (36 degrees C) (rectal) that does not respond to emergency treatment and observation care []IV. High-risk febrile neutropenia[A] as indicated by ANY ONE of the following(29)(30)(31)(32): []a. Profound neutropenia[B] anticipated to extend for more than 7 days []b. Hemodynamic instability []c. Hypoxemia []d. Tachypnea []e. Altered mental status []f. New-onset abdominal pain []g. New-onset vomiting or diarrhea []h. Oral or gastrointestinal mucositis that interferes with swallowing or causes severe diarrhea []i. Focal infection (eg, cellulitis, pneumonia, central line or catheter infection, perirectal abscess) []j. Renal insufficiency (eg, GFR of less than 30 mL/min/1.73m2 (0.5 mL/sec /1.73m2)). []k. Severe liver dysfunction (transaminase levels greater than 5 times normal) []l. Platelet count less than 50,000/mm3 (50 x109/L)(33) []m. Leukemia or lymphoma induction therapy []n. Leukemia not in complete remission or with evidence of disease progression []o. Bone marrow transplant patient []p. Alemtuzumab being used for therapy []q. [employer] Supportive Care in Cancer (MASCC) Risk Index score of less than 21[C](33)(35). []V. Isolation required (eg, tuberculosis that requires isolation, Ebola infection)[D](36)(37)(38)(39)(40) []. Gangrene that requires treatment beyond emergency or observation level care(41)(42) []VII. Antitoxin administration and ongoing observation required (eg, tetanus, botulism)(43)(44) []. Suspected infection with rapid progression or severe symptoms as indicated by ANY ONE of the following(45): []a. Streptococcal or staphylococcal toxic shock(46) []b. Diphtheria(47) []c. Hantavirus(48) []d. Severe acute respiratory syndrome(8)(49) []e. Anthrax(50) []f. Ebola[D](36)(37)(38) []g. Necrotizing soft tissue infection(41)(42) []h. Plague(50) []i. Other suspected infection that requires care beyond emergency or observation level care []VII. Severe adverse drug or systemic toxin reaction as indicated by ANY ONE of the following(24): []a. Serotonin syndrome(51)(52) []b. Neuroleptic malignant syndrome(51)(52) []c. Cholinergic syndrome with severe symptoms (eg, bronchorrhea, weakness , mental status changes, seizures)(53) []d. Anticholinergic syndrome []e. Sympathetic syndrome with severe symptoms (eg, seizures, mental status changes, cardiac dysrhythmias) []f. Other severe adverse drug or systemic toxin reaction that remains after emergency or observation level care (as appropriate) []VIII. Allergic reaction with severe symptoms (not responsive to emergency or observation care treatment as appropriate), including ANY ONE of the following(54): []a. Airway edema (pharyngeal, epiglottic, or laryngeal edema) []b. Stridor []c. Respiratory failure []d. Bronchospasm []e. Hypotension []IX. Environmental emergency (not responsive to emergency or observation care treatment as appropriate) as indicated by ANY ONE of the following(55)(56): []a. Hyperthermia []b. Heat stroke []c. Heat exhaustion []d. Hypothermia (temperature less than 95 degrees F (35 degrees C) rectal) (57) []e. Electrocution(58) []X. Complications of transplanted organ (ie, not covered elsewhere)[E] indicated by ANY ONE of the following(59): []a. Acute graft rejection (or graft vs. host disease)[F] requiring inpatient management (eg, intravenous immunosuppression)(60)(61)(62)( 63) []b. Acute failure of transplanted organ necessitating inpatient care (eg, cannot be managed in other setting) []c. Infection requiring inpatient management (eg, Hemodynamic instability, need for intravenous antimicrobial treatment)(64)(65) []d. Other complication of transplanted organ requiring inpatient management []XI. Systemic or Infectious Condition condition, symptom, or finding for which emergency and observation care have failed or are not considered appropriate. See General Criteria: Observation Care, General Admission Criteria or Pediatric General Admission Criteria guideline as appropriate. (Contents from SEVERE SEPSIS and SYSTEMIC OR INFECTIOUS CONDITION clinical indications for admission to inpatient care have been integrated in this form) The original [facility] content created by [facility] has been revised. The portions of the content which have been revised are identified through the use of italic text or in bold and [facility] has neither reviewed nor approved the modified material. All other unmodified content is copyright [facility]. Please see references footnoted in the original [facility] edition 2016 Admission Criteria Met?: Yes UBALDO STRAUSS Mar 31, 2017 00:29
[2017-03-31 03:00] VITALS: BP 93/64
[2017-03-31] MEDS: fentaNYL PF VIAL 100 MCG/2 ML VIAL IV PRN (06:28)
[2017-03-31 06:48] LABS: CALCIUM 6.4 mg/dL (8.5-10.1); GFR 71.9
[2017-03-31 06:55] LABS: POTASSIUM 2.8 mmol/L (3.5-5.1)
[2017-03-31 07:00] VITALS: BP 106/76
[2017-03-31] MEDS ORDERED: POTASSIUM CHLORIDE 20 MEQ TABLET.ER. PO ONE (07:00)
[2017-03-31 08:28] LABS: BASO % 0 % (0-3); EOS % 1 % (0-3); LYMPH # 0.8 x10^3/uL (1.0-4.8); LYMPH % 8 % (24-48); MEAN CORPUSCULAR HEMOGLOBIN 37 pg (25-35); MEAN CORPUSCULAR HGB CONC 35 g/dL (31-37); MEAN CORPUSCULAR VOLUME 103 fL (79-100); MONO % 5 % (0-9); NEUT % 86 % (31-73); PLATELET COUNT 95 x10^3/uL (140-400); RED BLOOD COUNT 1.72 x10^6/uL (3.50-5.40); RED CELL DISTRIBUTION WIDTH 16.2 % (11.5-14.5); WHITE BLOOD COUNT 10.7 x10^3/uL (4.0-11.0)
[2017-03-31 08:40] LABS: HEMATOCRIT 17.6 % (36.0-47.0); HEMOGLOBIN 6.2 g/dL (12.0-15.5)
[2017-03-31] MEDS: POTASSIUM CHLORIDE 20 MEQ TABLET.ER. PO SCH (08:48)
[2017-03-31] MEDS: THIAMINE 100 MG TABLET. PO SCH (08:49)
[2017-03-31] MEDS: FOLIC/VIT B COMP W-C (RENAL) TABLET. PO SCH (08:49)
[2017-03-31] MEDS ORDERED: POTASSIUM CHLORIDE 20 MEQ/15 ML ORAL LIQUID. PO SCH (09:00)
[2017-03-31 10:40] VITALS: BP 129/85
--- NOTE | 2017-03-31 13:36 | PDOC ---
PROGRESS NOTES Chief Complaint Chief Complaint lactic acidosis, no leukocytosis, UTI pyelonephritis IV abx, aggressive fluid hypokalemia, replace po and mag moderate malnutrition tobacco use d/o History of Present Illness History of Present Illness still abd pain and flank pain normal stool this AM good PO intake weakness Vitals Vitals Vital Signs Date Time Temp Pulse Resp B/P (MAP) Pulse Ox O2 Delivery O2 Flow Rate FiO2 03/31/17 10:40 97.7 120 20 129/85 (100) 100 Room Air 97.7 Physical Exam General: Alert, Oriented X3, Cooperative, mild distress (abd pain) Heart: Regular rate Lungs: Clear Abdomen: Normal bowel sounds, Soft (very tender, mid to right to palpation, guarded, no rebound) Extremities: No clubbing, No cyanosis, No edema, Normal pulses Skin: No rashes, No breakdown Labs LABS Laboratory Tests Test 03/30/17 14:55 03/30/17 17:15 03/31/17 05:30 03/31/17 08:07 White Blood Count 6.8 x10^3/uL (4.0-11.0) 10.7 x10^3/uL (4.0-11.0) Red Blood Count 2.49 x10^6/uL (3.50-5.40) 1.72 x10^6/uL (3.50-5.40) Hemoglobin 8.9 g/dL (12.0-15.5) 6.2 g/dL (12.0-15.5) Hematocrit 26.1 % (36.0-47.0) 17.6 % (36.0-47.0) Mean Corpuscular Volume 105 fL (79-100) 103 fL (79-100) Mean Corpuscular Hemoglobin 36 pg (25-35) 37 pg (25-35) Mean Corpuscular Hemoglobin Concent 34 g/dL (31-37) 35 g/dL (31-37) Red Cell Distribution Width 15.9 % (11.5-14.5) 16.2 % (11.5-14.5) Platelet Count 124 x10^3/uL (140-400) 95 x10^3/uL (140-400) Neutrophils (%) (Auto) 88 % (31-73) 86 % (31-73) Lymphocytes (%) (Auto) 8 % (24-48) 8 % (24-48) Monocytes (%) (Auto) 3 % (0-9) 5 % (0-9) Eosinophils (%) (Auto) 0 % (0-3) 1 % (0-3) Basophils (%) (Auto) 0 % (0-3) 0 % (0-3) Neutrophils # (Auto) 6.0 x10^3uL (1.8-7.7) 9.2 x10^3uL (1.8-7.7) Lymphocytes # (Auto) 0.6 x10^3/uL (1.0-4.8) 0.8 x10^3/uL (1.0-4.8) Monocytes # (Auto) 0.2 x10^3/uL (0.0-1.1) 0.6 x10^3/uL (0.0-1.1) Eosinophils # (Auto) 0.0 x10^3/uL (0.0-0.7) 0.1 x10^3/uL (0.0-0.7) Basophils # (Auto) 0.0 x10^3/uL (0.0-0.2) 0.0 x10^3/uL (0.0-0.2) Segmented Neutrophils % 56 % (35-66) Band Neutrophils % 33 % (0-9) Lymphocytes % 6 % (24-48) Monocytes % 5 % (0-10) Toxic Granulation Present Toxic Vacuolation Present Dohle Bodies Present Platelet Estimate Adequate (ADEQUATE) Macrocytosis Slight Urine Collection Type Unknown Urine Color [place] Urine Clarity Cloudy Urine pH 7.0 Urine Specific [place] 1.015 Urine Protein >=300 mg/dL (NEG-TRACE) Urine Glucose (UA) Negative mg/dL (NEG) Urine Ketones (Stick) Negative mg/dL (NEG) Urine Blood Moderate (NEG) Urine Nitrite Positive (NEG) Urine Bilirubin Small (NEG) Urine Urobilinogen Dipstick 1.0 mg/dL (0.2 mg/dL) Urine Leukocyte Esterase Large (NEG) Urine RBC 3-5 /HPF (0-2) Urine WBC >40 /HPF (0-4) Urine Bacteria Many /HPF (0-FEW) Sodium Level 138 mmol/L (136-145) 142 mmol/L (136-145) Potassium Level 2.2 mmol/L (3.5-5.1) 2.8 mmol/L (3.5-5.1) Chloride Level 95 mmol/L (98-107) 105 mmol/L (98-107) Carbon Dioxide Level 30 mmol/L (21-32) 26 mmol/L (21-32) Anion Gap 13 (6-14) 11 (6-14) Blood Urea Nitrogen 14 mg/dL (7-20) 17 mg/dL (7-20) Creatinine 1.0 mg/dL (0.6-1.0) 1.0 mg/dL (0.6-1.0) Estimated GFR (Cockcroft-Gault) 71.9 71.9 BUN/Creatinine Ratio 14 (6-20) Glucose Level 121 mg/dL (70-99) 105 mg/dL (70-99) Lactic Acid Level 3.9 mmol/L (0.4-2.0) 0.9 mmol/L (0.4-2.0) Calcium Level 7.7 mg/dL (8.5-10.1) 6.4 mg/dL (8.5-10.1) Total Bilirubin 1.6 mg/dL (0.2-1.0) Aspartate Amino Transf (AST/SGOT) 78 U/L (15-37) Alanine Aminotransferase (ALT/SGPT) 35 U/L (14-59) Alkaline Phosphatase 260 U/L (46-116) Total Protein 7.7 g/dL (6.4-8.2) Albumin 2.5 g/dL (3.4-5.0) Albumin/Globulin Ratio 0.5 (1.0-1.7) Procalcitonin 1.43 ng/mL (0.00-0.10) Magnesium Level 1.5 mg/dL (1.8-2.4) Review of Systems Review of Systems abd pain, bloating Assessment and Plan Assessmemt and Plan Problems Medical Problems: (1) Acute pyelonephritis Status: Acute (2) Hypokalemia Status: Acute (3) Macrocytic anemia Status: Acute (4) Severe protein-calorie malnutrition Status: Acute (5) Urinary tract infection Status: Acute Problems: Comment Review of Relevant I have reviewed the following items rick (where applicable) has been applied. Labs Laboratory Tests Test 03/30/17 14:55 03/30/17 17:15 03/31/17 05:30 03/31/17 08:07 White Blood Count 6.8 x10^3/uL (4.0-11.0) 10.7 x10^3/uL (4.0-11.0) Red Blood Count 2.49 x10^6/uL (3.50-5.40) 1.72 x10^6/uL (3.50-5.40) Hemoglobin 8.9 g/dL (12.0-15.5) 6.2 g/dL (12.0-15.5) Hematocrit 26.1 % (36.0-47.0) 17.6 % (36.0-47.0) Mean Corpuscular Volume 105 fL (79-100) 103 fL (79-100) Mean Corpuscular Hemoglobin 36 pg (25-35) 37 pg (25-35) Mean Corpuscular Hemoglobin Concent 34 g/dL (31-37) 35 g/dL (31-37) Red Cell Distribution Width 15.9 % (11.5-14.5) 16.2 % (11.5-14.5) Platelet Count 124 x10^3/uL (140-400) 95 x10^3/uL (140-400) Neutrophils (%) (Auto) 88 % (31-73) 86 % (31-73) Lymphocytes (%) (Auto) 8 % (24-48) 8 % (24-48) Monocytes (%) (Auto) 3 % (0-9) 5 % (0-9) Eosinophils (%) (Auto) 0 % (0-3) 1 % (0-3) Basophils (%) (Auto) 0 % (0-3) 0 % (0-3) Neutrophils # (Auto) 6.0 x10^3uL (1.8-7.7) 9.2 x10^3uL (1.8-7.7) Lymphocytes # (Auto) 0.6 x10^3/uL (1.0-4.8) 0.8 x10^3/uL (1.0-4.8) Monocytes # (Auto) 0.2 x10^3/uL (0.0-1.1) 0.6 x10^3/uL (0.0-1.1) Eosinophils # (Auto) 0.0 x10^3/uL (0.0-0.7) 0.1 x10^3/uL (0.0-0.7) Basophils # (Auto) 0.0 x10^3/uL (0.0-0.2) 0.0 x10^3/uL (0.0-0.2) Segmented Neutrophils % 56 % (35-66) Band Neutrophils % 33 % (0-9) Lymphocytes % 6 % (24-48) Monocytes % 5 % (0-10) Toxic Granulation Present Toxic Vacuolation Present Dohle Bodies Present Platelet Estimate Adequate (ADEQUATE) Macrocytosis Slight Urine Collection Type Unknown Urine Color [place] Urine Clarity Cloudy Urine pH 7.0 Urine Specific [place] 1.015 Urine Protein >=300 mg/dL (NEG-TRACE) Urine Glucose (UA) Negative mg/dL (NEG) Urine Ketones (Stick) Negative mg/dL (NEG) Urine Blood Moderate (NEG) Urine Nitrite Positive (NEG) Urine Bilirubin Small (NEG) Urine Urobilinogen Dipstick 1.0 mg/dL (0.2 mg/dL) Urine Leukocyte Esterase Large (NEG) Urine RBC 3-5 /HPF (0-2) Urine WBC >40 /HPF (0-4) Urine Bacteria Many /HPF (0-FEW) Sodium Level 138 mmol/L (136-145) 142 mmol/L (136-145) Potassium Level 2.2 mmol/L (3.5-5.1) 2.8 mmol/L (3.5-5.1) Chloride Level 95 mmol/L (98-107) 105 mmol/L (98-107) Carbon Dioxide Level 30 mmol/L (21-32) 26 mmol/L (21-32) Anion Gap 13 (6-14) 11 (6-14) Blood Urea Nitrogen 14 mg/dL (7-20) 17 mg/dL (7-20) Creatinine 1.0 mg/dL (0.6-1.0) 1.0 mg/dL (0.6-1.0) Estimated GFR (Cockcroft-Gault) 71.9 71.9 BUN/Creatinine Ratio 14 (6-20) Glucose Level 121 mg/dL (70-99) 105 mg/dL (70-99) Lactic Acid Level 3.9 mmol/L (0.4-2.0) 0.9 mmol/L (0.4-2.0) Calcium Level 7.7 mg/dL (8.5-10.1) 6.4 mg/dL (8.5-10.1) Total Bilirubin 1.6 mg/dL (0.2-1.0) Aspartate Amino Transf (AST/SGOT) 78 U/L (15-37) Alanine Aminotransferase (ALT/SGPT) 35 U/L (14-59) Alkaline Phosphatase 260 U/L (46-116) Total Protein 7.7 g/dL (6.4-8.2) Albumin 2.5 g/dL (3.4-5.0) Albumin/Globulin Ratio 0.5 (1.0-1.7) Procalcitonin 1.43 ng/mL (0.00-0.10) Magnesium Level 1.5 mg/dL (1.8-2.4) Laboratory Tests Test 03/30/17 14:55 03/30/17 17:15 03/31/17 05:30 03/31/17 08:07 White Blood Count 6.8 x10^3/uL (4.0-11.0) 10.7 x10^3/uL (4.0-11.0) Red Blood Count 2.49 x10^6/uL (3.50-5.40) 1.72 x10^6/uL (3.50-5.40) Hemoglobin 8.9 g/dL (12.0-15.5) 6.2 g/dL (12.0-15.5) Hematocrit 26.1 % (36.0-47.0) 17.6 % (36.0-47.0) Mean Corpuscular Volume 105 fL (79-100) 103 fL (79-100) Mean Corpuscular Hemoglobin 36 pg (25-35) 37 pg (25-35) Mean Corpuscular Hemoglobin Concent 34 g/dL (31-37) 35 g/dL (31-37) Red Cell Distribution Width 15.9 % (11.5-14.5) 16.2 % (11.5-14.5) Platelet Count 124 x10^3/uL (140-400) 95 x10^3/uL (140-400) Neutrophils (%) (Auto) 88 % (31-73) 86 % (31-73) Lymphocytes (%) (Auto) 8 % (24-48) 8 % (24-48) Monocytes (%) (Auto) 3 % (0-9) 5 % (0-9) Eosinophils (%) (Auto) 0 % (0-3) 1 % (0-3) Basophils (%) (Auto) 0 % (0-3) 0 % (0-3) Neutrophils # (Auto) 6.0 x10^3uL (1.8-7.7) 9.2 x10^3uL (1.8-7.7) Lymphocytes # (Auto) 0.6 x10^3/uL (1.0-4.8) 0.8 x10^3/uL (1.0-4.8) Monocytes # (Auto) 0.2 x10^3/uL (0.0-1.1) 0.6 x10^3/uL (0.0-1.1) Eosinophils # (Auto) 0.0 x10^3/uL (0.0-0.7) 0.1 x10^3/uL (0.0-0.7) Basophils # (Auto) 0.0 x10^3/uL (0.0-0.2) 0.0 x10^3/uL (0.0-0.2) Segmented Neutrophils % 56 % (35-66) Band Neutrophils % 33 % (0-9) Lymphocytes % 6 % (24-48) Monocytes % 5 % (0-10) Toxic Granulation Present Toxic Vacuolation Present Dohle Bodies Present Platelet Estimate Adequate (ADEQUATE) Macrocytosis Slight Urine Collection Type Unknown Urine Color [place] Urine Clarity Cloudy Urine pH 7.0 Urine Specific [place] 1.015 Urine Protein >=300 mg/dL (NEG-TRACE) Urine Glucose (UA) Negative mg/dL (NEG) Urine Ketones (Stick) Negative mg/dL (NEG) Urine Blood Moderate (NEG) Urine Nitrite Positive (NEG) Urine Bilirubin Small (NEG) Urine Urobilinogen Dipstick 1.0 mg/dL (0.2 mg/dL) Urine Leukocyte Esterase Large (NEG) Urine RBC 3-5 /HPF (0-2) Urine WBC >40 /HPF (0-4) Urine Bacteria Many /HPF (0-FEW) Sodium Level 138 mmol/L (136-145) 142 mmol/L (136-145) Potassium Level 2.2 mmol/L (3.5-5.1) 2.8 mmol/L (3.5-5.1) Chloride Level 95 mmol/L (98-107) 105 mmol/L (98-107) Carbon Dioxide Level 30 mmol/L (21-32) 26 mmol/L (21-32) Anion Gap 13 (6-14) 11 (6-14) Blood Urea Nitrogen 14 mg/dL (7-20) 17 mg/dL (7-20) Creatinine 1.0 mg/dL (0.6-1.0) 1.0 mg/dL (0.6-1.0) Estimated GFR (Cockcroft-Gault) 71.9 71.9 BUN/Creatinine Ratio 14 (6-20) Glucose Level 121 mg/dL (70-99) 105 mg/dL (70-99) Lactic Acid Level 3.9 mmol/L (0.4-2.0) 0.9 mmol/L (0.4-2.0) Calcium Level 7.7 mg/dL (8.5-10.1) 6.4 mg/dL (8.5-10.1) Total Bilirubin 1.6 mg/dL (0.2-1.0) Aspartate Amino Transf (AST/SGOT) 78 U/L (15-37) Alanine Aminotransferase (ALT/SGPT) 35 U/L (14-59) Alkaline Phosphatase 260 U/L (46-116) Total Protein 7.7 g/dL (6.4-8.2) Albumin 2.5 g/dL (3.4-5.0) Albumin/Globulin Ratio 0.5 (1.0-1.7) Procalcitonin 1.43 ng/mL (0.00-0.10) Magnesium Level 1.5 mg/dL (1.8-2.4) Microbiology 03/30/17 Blood Culture - Final, Complete Medications Current Medications Sodium Chloride 1,000 ml @ 1,095 mls/hr Q55M IV Last administered on t 18:12; Start 03/30/17 at 15:09; Stop 03/30/17 at 17:09; Status DC Acetaminophen (Tylenol) 1,000 mg 1X ONCE PO Last administered on 03/30/17 15: 34; Start 03/30/17 at 15:30; Stop 03/30/17 at 15:31; Status DC Potassium Chloride (Klor-Con) 40 meq 1X ONCE PO Last administered on 16:32; Start 03/30/17 at 16:30; Stop 03/30/17 at 16:31; Status DC Iohexol (Omnipaque 300 Mg/ml) 75 ml 1X ONCE IV Last administered on 03/30/17 16:36; Start 03/30/17 at 16:30; Stop 03/30/17 at 16:31; Status DC Info (Do NOT chart on this entry -- for MONITORING) 1 each PRN DAILY PRN MC SEE COMMENTS; Start 03/30/17 at 16:30; Stop 04/01/17 at 16:29 Ceftriaxone Sodium 1 gm/ Sodium Chloride 50 ml @ 100 mls/hr Q24H IV Last administered on 03/30/17 18:11; Start 03/30/17 at 18:00 Ondansetron HCl (Zofran) 4 mg PRN Q8HRS PRN IV NAUSEA/VOMITING; Start 03/30/17 at 17:15; Stop 03/31/17 at 17:14 Fentanyl Citrate (Fentanyl 2ml Vial) 50 mcg PRN Q2HR PRN IV PAIN Last administered on 03/31/17 06:28; Start 03/30/17 at 17:15; Stop 03/31/17 at 17:14 Sodium Chloride 1,000 ml @ 150 mls/hr Q6H40M IV ; Start 03/30/17 at 17:08; Stop 03/30/17 at 18:04; Status DC Acetaminophen (Tylenol) 650 mg PRN Q4HRS PRN PO FEVER Last administered on 03/30 22:40; Start 03/30/17 at 17:15; Stop 03/31/17 at 17:14 Magnesium Sulfate/ Dextrose 50 ml @ 25 mls/hr 1X ONCE IV Last administered on 03/30/17 19:21; Start 03/30/17 at 18:00; Stop 03/30/17 at 19:59; Status DC Thiamine Mononitrate (Vitamin B-1) 100 mg DAILY PO Last administered on 08:49; Start 03/30/17 at 18:30 Vitamin B Complex/ Vitamin C (Marivel-Judah) 1 tab DAILY PO Last administered on 08:49; Start 03/30/17 at 18:30 Potassium Chloride (KCl Oral Soln) 40 meq 1X ONCE PO Last administered on 03/30 18:38; Start 03/30/17 at 18:30; Stop 03/30/17 at 18:43; Status DC Potassium Chloride (KCl Oral Soln) 20 meq DAILY PO ; Start 03/31/17 at 09:00; Stop 03/31/17 at 09:00; Status DC Potassium Chloride/Sodium Chloride 1,000 ml @ 100 mls/hr Q10H IV Last administered on 03/31/17 05:09; Start 03/30/17 at 19:30 Nicotine (Nicoderm Cq 7mg) 1 patch PRN DAILY PRN TD SMOKING CESSATION; Start at 18:15 Zolpidem Tartrate (Ambien) 5 mg PRN QHS PRN PO INSOMNIA Last administered on 20:41; Start 03/30/17 at 20:15 Potassium Chloride (Klor-Con) 20 meq DAILYWBKFT PO Last administered on 08:48; Start 03/31/17 at 08:00 Potassium Chloride (Klor-Con) 40 meq 1X ONCE PO Last administered on 07:39; Start 03/31/17 at 07:00; Stop 03/31/17 at 07:02; Status DC Active Scripts Active Reported Seroquel (Quetiapine Fumarate) 100 Mg Tablet 1 Tab PO QHS Vitals/I & O Vital Sign - Last 24 Hours 03/30/17 03/30/17 03/30/17 03/30/17 14:45 15:08 15:30 16:00 Temp 100.3 100.3 Pulse 145 147 135 127 Resp 20 B/P (MAP) 151/74 (99) 14/67 (50) 121/80 (94) 122/66 (84) Pulse Ox 100 100 100 100 O2 Delivery Room Air Room Air Room Air Room Air 03/30/17 03/30/17 03/30/17 03/30/17 16:48 16:59 19:15 19:15 Temp 99.7 99.0 99.0 99.7 99.0 99.0 Pulse 118 118 118 Resp 20 20 B/P (MAP) 118/69 (85) 125/84 (98) 125/84 (98) Pulse Ox 100 99 99 O2 Delivery Room Air Room Air Room Air 03/30/17 03/30/17 03/30/17 03/31/17 19:20 20:41 22:52 03:00 Temp 101.5 99.7 101.5 99.7 Pulse 132 123 Resp 20 22 22 B/P (MAP) 94/61 (72) 93/64 (74) Pulse Ox 99 99 99 O2 Delivery Room Air Room Air Room Air 03/31/17 03/31/17 03/31/17 03/31/17 06:28 06:44 07:00 07:42 Temp 98.0 98.0 Pulse 114 Resp 18 16 18 B/P (MAP) 106/76 (86) Pulse Ox 99 99 100 O2 Delivery Room Air Room Air Room Air Room Air 03/31/17 10:40 Temp 97.7 97.7 Pulse 120 Resp 20 B/P (MAP) 129/85 (100) Pulse Ox 100 O2 Delivery Room Air Intake and Output 03/30/17 03/30/17 03/31/17 15:00 23:00 07:00 Intake Total 1100 ml 1740 ml Balance 1100 ml 1740 ml ILDA MONTENEGRO MD Mar 31, 2017 13:36
[2017-03-31] MEDS ORDERED: POLYETHYLENE GLYCOL 3350 17 GM PACKET. PO PRN (13:45)
[2017-03-31] MEDS ORDERED: POLYETHYLENE GLYCOL 3350 17 GM PACKET. PO ONE (13:45)
[2017-03-31] MEDS: MORPHINE IR 15 MG TABLET PO PRN ×2 (14:23→21:08)
[2017-03-31 15:00] VITALS: BP 113/81
[2017-03-31] MEDS ORDERED: MAGNESIUM SULFATE 4GM 100 ML IV ONE (15:00)
[2017-03-31 19:00] VITALS: BP 107/74
[2017-03-31] MEDS: ZOLPIDEM 5 MG TABLET. PO PRN (21:07)
[2017-03-31 23:00] VITALS: BP 111/73
[2017-04-01] VITALS (15 sets, daily range): BP systolic 109–156; BP diastolic 65–100
[2017-04-01 06:45] LABS: ALBUMIN 2.1 g/dL (3.4-5.0); ALBUMIN/GLOBULIN RATIO 0.6 (1.0-1.7); CALCIUM 6.7 mg/dL (8.5-10.1); CREATININE 0.7 mg/dL (0.6-1.0); GFR 108.5; POTASSIUM 3.7 mmol/L (3.5-5.1); TOTAL BILIRUBIN 1.8 mg/dL (0.2-1.0); TOTAL PROTEIN 5.7 g/dL (6.4-8.2)
[2017-04-01 07:23] LABS: BASO # 0.1 x10^3/uL (0.0-0.2); BASO % 1 % (0-3); EOS % 0 % (0-3); INR 1.3 (0.8-1.1); LYMPH # 1.2 x10^3/uL (1.0-4.8); LYMPH % 12 % (24-48); MEAN CORPUSCULAR HEMOGLOBIN 36 pg (25-35); MEAN CORPUSCULAR HGB CONC 34 g/dL (31-37); MEAN CORPUSCULAR VOLUME 106 fL (79-100); MONO % 5 % (0-9); NEUT % 83 % (31-73); PLATELET COUNT 131 x10^3/uL (140-400); PROTHROMBIN TIME PATIENT 15.2 SEC (11.7-14.0); RED BLOOD COUNT 1.54 x10^6/uL (3.50-5.40); RED CELL DISTRIBUTION WIDTH 16.4 % (11.5-14.5); WHITE BLOOD COUNT 10.1 x10^3/uL (4.0-11.0)
[2017-04-01 07:33] LABS: HEMATOCRIT 16.4 % (36.0-47.0); HEMOGLOBIN 5.6 g/dL (12.0-15.5)
[2017-04-01] MEDS ORDERED: MAGNESIUM SULFATE 4GM 100 ML IV ONE (09:00)
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
[2017-04-01] MEDS: MORPHINE IR 15 MG TABLET PO PRN ×2 (09:38→22:16)
[2017-04-01] MEDS: THIAMINE 100 MG TABLET. PO SCH (09:38)
[2017-04-01] MEDS: POTASSIUM CHLORIDE 20 MEQ TABLET.ER. PO SCH (09:38)
[2017-04-01] MEDS: FOLIC/VIT B COMP W-C (RENAL) TABLET. PO SCH (09:38)
[2017-04-01 10:05] LABS: % SAT IRON 79 % (15-34); IRON,SERUM 100 ug/dL (50-170)
--- NOTE | 2017-04-01 11:14 | PDOC ---
PROGRESS NOTES Chief Complaint Chief Complaint lactic acidosis, no leukocytosis, UTI pyelonephritis IV abx, aggressive fluid hypokalemia, replace po and mag moderate malnutrition tobacco use d/o anemia of acute illness, EtOH abuse, History of Present Illness History of Present Illness still abd pain and flank pain normal stools more anemic today, plan 2 u PRBC EtOH abuse discussed hepatic dysfunction noted, consult GI good PO intake weakness persists Vitals Vitals Vital Signs Date Time Temp Pulse Resp B/P (MAP) Pulse Ox O2 Delivery O2 Flow Rate FiO2 04/01/17 10:51 100.8 111 18 131/77 (95) 100 Room Air 100.8 Physical Exam General: Alert, Oriented X3, Cooperative, mild distress (abd pain) Heart: Regular rate Lungs: Clear Abdomen: Normal bowel sounds, Soft (very tender, mid to right to palpation, guarded, no rebound) Extremities: No clubbing, No cyanosis, No edema, Normal pulses Skin: No rashes, No breakdown Labs LABS Laboratory Tests Test 04/01/17 05:40 White Blood Count 10.1 x10^3/uL (4.0-11.0) Red Blood Count 1.54 x10^6/uL (3.50-5.40) Hemoglobin 5.6 g/dL (12.0-15.5) Hematocrit 16.4 % (36.0-47.0) Mean Corpuscular Volume 106 fL (79-100) Mean Corpuscular Hemoglobin 36 pg (25-35) Mean Corpuscular Hemoglobin Concent 34 g/dL (31-37) Red Cell Distribution Width 16.4 % (11.5-14.5) Platelet Count 131 x10^3/uL (140-400) Neutrophils (%) (Auto) 83 % (31-73) Lymphocytes (%) (Auto) 12 % (24-48) Monocytes (%) (Auto) 5 % (0-9) Eosinophils (%) (Auto) 0 % (0-3) Basophils (%) (Auto) 1 % (0-3) Neutrophils # (Auto) 8.4 x10^3uL (1.8-7.7) Lymphocytes # (Auto) 1.2 x10^3/uL (1.0-4.8) Monocytes # (Auto) 0.5 x10^3/uL (0.0-1.1) Eosinophils # (Auto) 0.0 x10^3/uL (0.0-0.7) Basophils # (Auto) 0.1 x10^3/uL (0.0-0.2) Prothrombin Time 15.2 SEC (11.7-14.0) Prothromb Time International Ratio 1.3 (0.8-1.1) Sodium Level 139 mmol/L (136-145) Potassium Level 3.7 mmol/L (3.5-5.1) Chloride Level 105 mmol/L (98-107) Carbon Dioxide Level 25 mmol/L (21-32) Anion Gap 9 (6-14) Blood Urea Nitrogen 14 mg/dL (7-20) Creatinine 0.7 mg/dL (0.6-1.0) Estimated GFR (Cockcroft-Gault) 108.5 BUN/Creatinine Ratio 20 (6-20) Glucose Level 82 mg/dL (70-99) Calcium Level 6.7 mg/dL (8.5-10.1) Iron Level 100 ug/dL (50-170) Total Iron Binding Capacity 127 ug/dL (250-450) Iron Saturation 79 % (15-34) Total Bilirubin 1.8 mg/dL (0.2-1.0) Aspartate Amino Transf (AST/SGOT) 81 U/L (15-37) Alanine Aminotransferase (ALT/SGPT) 49 U/L (14-59) Alkaline Phosphatase 312 U/L (46-116) Lactate Dehydrogenase 418 U/L (81-234) Total Protein 5.7 g/dL (6.4-8.2) Albumin 2.1 g/dL (3.4-5.0) Albumin/Globulin Ratio 0.6 (1.0-1.7) Review of Systems Review of Systems weakness feels better overall Assessment and Plan Assessmemt and Plan Problems Medical Problems: (1) Acute pyelonephritis Status: Acute (2) Hypokalemia Status: Acute (3) Macrocytic anemia Status: Acute (4) Severe protein-calorie malnutrition Status: Acute (5) Urinary tract infection Status: Acute Problems: Comment Review of Relevant I have reviewed the following items rick (where applicable) has been applied. Labs Laboratory Tests Test 03/30/17 14:55 03/30/17 17:15 03/31/17 05:30 03/31/17 08:07 White Blood Count 6.8 x10^3/uL (4.0-11.0) 10.7 x10^3/uL (4.0-11.0) Red Blood Count 2.49 x10^6/uL (3.50-5.40) 1.72 x10^6/uL (3.50-5.40) Hemoglobin 8.9 g/dL (12.0-15.5) 6.2 g/dL (12.0-15.5) Hematocrit 26.1 % (36.0-47.0) 17.6 % (36.0-47.0) Mean Corpuscular Volume 105 fL (79-100) 103 fL (79-100) Mean Corpuscular Hemoglobin 36 pg (25-35) 37 pg (25-35) Mean Corpuscular Hemoglobin Concent 34 g/dL (31-37) 35 g/dL (31-37) Red Cell Distribution Width 15.9 % (11.5-14.5) 16.2 % (11.5-14.5) Platelet Count 124 x10^3/uL (140-400) 95 x10^3/uL (140-400) Neutrophils (%) (Auto) 88 % (31-73) 86 % (31-73) Lymphocytes (%) (Auto) 8 % (24-48) 8 % (24-48) Monocytes (%) (Auto) 3 % (0-9) 5 % (0-9) Eosinophils (%) (Auto) 0 % (0-3) 1 % (0-3) Basophils (%) (Auto) 0 % (0-3) 0 % (0-3) Neutrophils # (Auto) 6.0 x10^3uL (1.8-7.7) 9.2 x10^3uL (1.8-7.7) Lymphocytes # (Auto) 0.6 x10^3/uL (1.0-4.8) 0.8 x10^3/uL (1.0-4.8) Monocytes # (Auto) 0.2 x10^3/uL (0.0-1.1) 0.6 x10^3/uL (0.0-1.1) Eosinophils # (Auto) 0.0 x10^3/uL (0.0-0.7) 0.1 x10^3/uL (0.0-0.7) Basophils # (Auto) 0.0 x10^3/uL (0.0-0.2) 0.0 x10^3/uL (0.0-0.2) Segmented Neutrophils % 56 % (35-66) Band Neutrophils % 33 % (0-9) Lymphocytes % 6 % (24-48) Monocytes % 5 % (0-10) Toxic Granulation Present Toxic Vacuolation Present Dohle Bodies Present Platelet Estimate Adequate (ADEQUATE) Macrocytosis Slight Urine Collection Type Unknown Urine Color [place] Urine Clarity Cloudy Urine pH 7.0 Urine Specific [place] 1.015 Urine Protein >=300 mg/dL (NEG-TRACE) Urine Glucose (UA) Negative mg/dL (NEG) Urine Ketones (Stick) Negative mg/dL (NEG) Urine Blood Moderate (NEG) Urine Nitrite Positive (NEG) Urine Bilirubin Small (NEG) Urine Urobilinogen Dipstick 1.0 mg/dL (0.2 mg/dL) Urine Leukocyte Esterase Large (NEG) Urine RBC 3-5 /HPF (0-2) Urine WBC >40 /HPF (0-4) Urine Bacteria Many /HPF (0-FEW) Sodium Level 138 mmol/L (136-145) 142 mmol/L (136-145) Potassium Level 2.2 mmol/L (3.5-5.1) 2.8 mmol/L (3.5-5.1) Chloride Level 95 mmol/L (98-107) 105 mmol/L (98-107) Carbon Dioxide Level 30 mmol/L (21-32) 26 mmol/L (21-32) Anion Gap 13 (6-14) 11 (6-14) Blood Urea Nitrogen 14 mg/dL (7-20) 17 mg/dL (7-20) Creatinine 1.0 mg/dL (0.6-1.0) 1.0 mg/dL (0.6-1.0) Estimated GFR (Cockcroft-Gault) 71.9 71.9 BUN/Creatinine Ratio 14 (6-20) Glucose Level 121 mg/dL (70-99) 105 mg/dL (70-99) Lactic Acid Level 3.9 mmol/L (0.4-2.0) 0.9 mmol/L (0.4-2.0) Calcium Level 7.7 mg/dL (8.5-10.1) 6.4 mg/dL (8.5-10.1) Total Bilirubin 1.6 mg/dL (0.2-1.0) Aspartate Amino Transf (AST/SGOT) 78 U/L (15-37) Alanine Aminotransferase (ALT/SGPT) 35 U/L (14-59) Alkaline Phosphatase 260 U/L (46-116) Total Protein 7.7 g/dL (6.4-8.2) Albumin 2.5 g/dL (3.4-5.0) Albumin/Globulin Ratio 0.5 (1.0-1.7) Procalcitonin 1.43 ng/mL (0.00-0.10) Magnesium Level 1.5 mg/dL (1.8-2.4) Test 04/01/17 05:40 White Blood Count 10.1 x10^3/uL (4.0-11.0) Red Blood Count 1.54 x10^6/uL (3.50-5.40) Hemoglobin 5.6 g/dL (12.0-15.5) Hematocrit 16.4 % (36.0-47.0) Mean Corpuscular Volume 106 fL (79-100) Mean Corpuscular Hemoglobin 36 pg (25-35) Mean Corpuscular Hemoglobin Concent 34 g/dL (31-37) Red Cell Distribution Width 16.4 % (11.5-14.5) Platelet Count 131 x10^3/uL (140-400) Neutrophils (%) (Auto) 83 % (31-73) Lymphocytes (%) (Auto) 12 % (24-48) Monocytes (%) (Auto) 5 % (0-9) Eosinophils (%) (Auto) 0 % (0-3) Basophils (%) (Auto) 1 % (0-3) Neutrophils # (Auto) 8.4 x10^3uL (1.8-7.7) Lymphocytes # (Auto) 1.2 x10^3/uL (1.0-4.8) Monocytes # (Auto) 0.5 x10^3/uL (0.0-1.1) Eosinophils # (Auto) 0.0 x10^3/uL (0.0-0.7) Basophils # (Auto) 0.1 x10^3/uL (0.0-0.2) Prothrombin Time 15.2 SEC (11.7-14.0) Prothromb Time International Ratio 1.3 (0.8-1.1) Sodium Level 139 mmol/L (136-145) Potassium Level 3.7 mmol/L (3.5-5.1) Chloride Level 105 mmol/L (98-107) Carbon Dioxide Level 25 mmol/L (21-32) Anion Gap 9 (6-14) Blood Urea Nitrogen 14 mg/dL (7-20) Creatinine 0.7 mg/dL (0.6-1.0) Estimated GFR (Cockcroft-Gault) 108.5 BUN/Creatinine Ratio 20 (6-20) Glucose Level 82 mg/dL (70-99) Calcium Level 6.7 mg/dL (8.5-10.1) Iron Level 100 ug/dL (50-170) Total Iron Binding Capacity 127 ug/dL (250-450) Iron Saturation 79 % (15-34) Total Bilirubin 1.8 mg/dL (0.2-1.0) Aspartate Amino Transf (AST/SGOT) 81 U/L (15-37) Alanine Aminotransferase (ALT/SGPT) 49 U/L (14-59) Alkaline Phosphatase 312 U/L (46-116) Lactate Dehydrogenase 418 U/L (81-234) Total Protein 5.7 g/dL (6.4-8.2) Albumin 2.1 g/dL (3.4-5.0) Albumin/Globulin Ratio 0.6 (1.0-1.7) Laboratory Tests Test 04/01/17 05:40 White Blood Count 10.1 x10^3/uL (4.0-11.0) Red Blood Count 1.54 x10^6/uL (3.50-5.40) Hemoglobin 5.6 g/dL (12.0-15.5) Hematocrit 16.4 % (36.0-47.0) Mean Corpuscular Volume 106 fL (79-100) Mean Corpuscular Hemoglobin 36 pg (25-35) Mean Corpuscular Hemoglobin Concent 34 g/dL (31-37) Red Cell Distribution Width 16.4 % (11.5-14.5) Platelet Count 131 x10^3/uL (140-400) Neutrophils (%) (Auto) 83 % (31-73) Lymphocytes (%) (Auto) 12 % (24-48) Monocytes (%) (Auto) 5 % (0-9) Eosinophils (%) (Auto) 0 % (0-3) Basophils (%) (Auto) 1 % (0-3) Neutrophils # (Auto) 8.4 x10^3uL (1.8-7.7) Lymphocytes # (Auto) 1.2 x10^3/uL (1.0-4.8) Monocytes # (Auto) 0.5 x10^3/uL (0.0-1.1) Eosinophils # (Auto) 0.0 x10^3/uL (0.0-0.7) Basophils # (Auto) 0.1 x10^3/uL (0.0-0.2) Prothrombin Time 15.2 SEC (11.7-14.0) Prothromb Time International Ratio 1.3 (0.8-1.1) Sodium Level 139 mmol/L (136-145) Potassium Level 3.7 mmol/L (3.5-5.1) Chloride Level 105 mmol/L (98-107) Carbon Dioxide Level 25 mmol/L (21-32) Anion Gap 9 (6-14) Blood Urea Nitrogen 14 mg/dL (7-20) Creatinine 0.7 mg/dL (0.6-1.0) Estimated GFR (Cockcroft-Gault) 108.5 BUN/Creatinine Ratio 20 (6-20) Glucose Level 82 mg/dL (70-99) Calcium Level 6.7 mg/dL (8.5-10.1) Iron Level 100 ug/dL (50-170) Total Iron Binding Capacity 127 ug/dL (250-450) Iron Saturation 79 % (15-34) Total Bilirubin 1.8 mg/dL (0.2-1.0) Aspartate Amino Transf (AST/SGOT) 81 U/L (15-37) Alanine Aminotransferase (ALT/SGPT) 49 U/L (14-59) Alkaline Phosphatase 312 U/L (46-116) Lactate Dehydrogenase 418 U/L (81-234) Total Protein 5.7 g/dL (6.4-8.2) Albumin 2.1 g/dL (3.4-5.0) Albumin/Globulin Ratio 0.6 (1.0-1.7) Microbiology 03/30/17 Blood Culture - Preliminary, Resulted 03/30/17 Blood Culture Result 1 (RENÉ) - Preliminary, Resulted 03/30/17 Urine Culture - Preliminary, Resulted 03/30/17 Urine Culture Result 1 (RENÉ) - Preliminary, Resulted Medications Current Medications Sodium Chloride 1,000 ml @ 1,095 mls/hr Q55M IV Last administered on 18:12; Start 03/30/17 at 15:09; Stop 03/30/17 at 17:09; Status DC Acetaminophen (Tylenol) 1,000 mg 1X ONCE PO Last administered on 03/30/17 15: 34; Start 03/30/17 at 15:30; Stop 03/30/17 at 15:31; Status DC Potassium Chloride (Klor-Con) 40 meq 1X ONCE PO Last administered on 16:32; Start 03/30/17 at 16:30; Stop 03/30/17 at 16:31; Status DC Iohexol (Omnipaque 300 Mg/ml) 75 ml 1X ONCE IV Last administered on 03/30/17 16:36; Start 03/30/17 at 16:30; Stop 03/30/17 at 16:31; Status DC Info (Do NOT chart on this entry -- for MONITORING) 1 each PRN DAILY PRN MC SEE COMMENTS; Start 03/30/17 at 16:30; Stop 04/01/17 at 16:29 Ceftriaxone Sodium 1 gm/ Sodium Chloride 50 ml @ 100 mls/hr Q24H IV Last administered on 03/31/17 17:39; Start 03/30/17 at 18:00 Ondansetron HCl (Zofran) 4 mg PRN Q8HRS PRN IV NAUSEA/VOMITING; Start 03/30/17 at 17:15; Stop 03/31/17 at 17:14; Status DC Fentanyl Citrate (Fentanyl 2ml Vial) 50 mcg PRN Q2HR PRN IV PAIN Last administered on 03/31/17 06:28; Start 03/30/17 at 17:15; Stop 03/31/17 at 17:14 ; Status DC Sodium Chloride 1,000 ml @ 150 mls/hr Q6H40M IV ; Start 03/30/17 at 17:08; Stop 03/30/17 at 18:04; Status DC Acetaminophen (Tylenol) 650 mg PRN Q4HRS PRN PO FEVER Last administered on 03/30 22:40; Start 03/30/17 at 17:15; Stop 03/31/17 at 17:14; Status DC Magnesium Sulfate/ Dextrose 50 ml @ 25 mls/hr 1X ONCE IV Last administered on 03/30/17 19:21; Start 03/30/17 at 18:00; Stop 03/30/17 at 19:59; Status DC Thiamine Mononitrate (Vitamin B-1) 100 mg DAILY PO Last administered on 09:38; Start 03/30/17 at 18:30 Vitamin B Complex/ Vitamin C (Marivel-Judah) 1 tab DAILY PO Last administered on 09:38; Start 03/30/17 at 18:30 Potassium Chloride (KCl Oral Soln) 40 meq 1X ONCE PO Last administered on 03/30 18:38; Start 03/30/17 at 18:30; Stop 03/30/17 at 18:43; Status DC Potassium Chloride (KCl Oral Soln) 20 meq DAILY PO ; Start 03/31/17 at 09:00; Stop 03/31/17 at 09:00; Status DC Potassium Chloride/Sodium Chloride 1,000 ml @ 100 mls/hr Q10H IV Last administered on 04/01/17 00:12; Start 03/30/17 at 19:30 Nicotine (Nicoderm Cq 7mg) 1 patch PRN DAILY PRN TD SMOKING CESSATION; Start at 18:15 Zolpidem Tartrate (Ambien) 5 mg PRN QHS PRN PO INSOMNIA Last administered on 21:07; Start 03/30/17 at 20:15 Potassium Chloride (Klor-Con) 20 meq DAILYWBKFT PO Last administered on 09:38; Start 03/31/17 at 08:00 Potassium Chloride (Klor-Con) 40 meq 1X ONCE PO Last administered on 07:39; Start 03/31/17 at 07:00; Stop 03/31/17 at 07:02; Status DC Polyethylene Glycol (miraLAX PACKET) 17 gm 1X ONCE PO Last administered on 14:22; Start 03/31/17 at 13:45; Stop 03/31/17 at 13:46; Status DC Polyethylene Glycol (miraLAX PACKET) 17 gm PRN DAILY PRN PO CONSTIPATION; Start 03/31/17 at 13:45 Morphine Sulfate (Morphine Ir) 15 mg PRN Q4HRS PRN PO PAIN Last administered on 04/01/17 09:38; Start 03/31/17 at 13:45 Magnesium Sulfate/ Dextrose 100 ml @ 25 mls/hr 1X ONCE IV Last administered on 03/31/17 15:15; Start 03/31/17 at 15:00; Stop 03/31/17 at 18:59; Status DC Magnesium Sulfate/ Dextrose 100 ml @ 25 mls/hr 1X ONCE IV Last administered on 04/01/17 09:43; Start 04/01/17 at 09:00; Stop 04/01/17 at 12:59 Pantoprazole Sodium (Protonix) 40 mg DAILYAC PO ; Start 04/02/17 at 11:30 Active Scripts Active Reported Seroquel (Quetiapine Fumarate) 100 Mg Tablet 1 Tab PO QHS Vitals/I & O Vital Sign - Last 24 Hours 03/31/17 03/31/17 03/31/17 03/31/17 14:23 15:00 19:00 20:00 Temp 97.8 98.6 97.8 98.6 Pulse 118 106 Resp 20 19 B/P (MAP) 113/81 (92) 107/74 (85) Pulse Ox 92 95 O2 Delivery Room Air Room Air Room Air 03/31/17 03/31/17 03/31/17 04/01/17 21:08 22:08 23:00 03:00 Temp 98.5 98.1 98.5 98.1 Pulse 113 108 Resp 18 18 B/P (MAP) 111/73 (86) 109/70 (83) Pulse Ox 95 95 95 95 O2 Delivery Room Air Room Air Room Air Room Air 04/01/17 04/01/17 07:00 10:51 Temp 97.7 100.8 97.7 100.8 Pulse 100 111 Resp 18 18 B/P (MAP) 124/83 (97) 131/77 (95) Pulse Ox 99 100 O2 Delivery Room Air Room Air Intake and Output 03/31/17 03/31/17 04/01/17 15:00 23:00 07:00 Intake Total 790 ml Balance 790 ml ILDA MONTENEGRO MD Apr 01, 2017 11:14
[2017-04-01] MEDS ORDERED: ACETAMINOPHEN 325 MG TABLET. PO PRN (16:45)
[2017-04-01] MEDS: ZOLPIDEM 5 MG TABLET. PO PRN (22:16)
[2017-04-02 03:00] VITALS: BP 128/87
[2017-04-02 07:00] VITALS: BP 133/86
[2017-04-02 07:46] LABS: BASO % 0 % (0-3); EOS % 0 % (0-3); HEMATOCRIT 22.7 % (36.0-47.0); HEMOGLOBIN 7.9 g/dL (12.0-15.5); LYMPH # 1.1 x10^3/uL (1.0-4.8); LYMPH % 11 % (24-48); MEAN CORPUSCULAR HEMOGLOBIN 32 pg (25-35); MEAN CORPUSCULAR HGB CONC 35 g/dL (31-37); MEAN CORPUSCULAR VOLUME 93 fL (79-100); MONO % 5 % (0-9); NEUT % 84 % (31-73); PLATELET COUNT 208 x10^3/uL (140-400); RED BLOOD COUNT 2.44 x10^6/uL (3.50-5.40); RED CELL DISTRIBUTION WIDTH 20.1 % (11.5-14.5); WHITE BLOOD COUNT 10.3 x10^3/uL (4.0-11.0)
[2017-04-02 09:05] LABS: ALBUMIN 1.9 g/dL (3.4-5.0); ALBUMIN/GLOBULIN RATIO 0.6 (1.0-1.7); CALCIUM 7.2 mg/dL (8.5-10.1); CREATININE 0.7 mg/dL (0.6-1.0); GFR 108.5; TOTAL PROTEIN 5.3 g/dL (6.4-8.2)
[2017-04-02] MEDS: POTASSIUM CHLORIDE 20 MEQ TABLET.ER. PO SCH (09:45)
[2017-04-02] MEDS: FOLIC/VIT B COMP W-C (RENAL) TABLET. PO SCH (09:45)
[2017-04-02] MEDS: THIAMINE 100 MG TABLET. PO SCH (09:45)
--- NOTE | 2017-04-02 10:33 | PDOC ---
Subjective: Subjective: Feels better. No abd pain today, not eating much. Lose stools yesterday, none today. Denies bleeding. Objective: Vital Signs: Vital Signs Date Time Temp Pulse Resp B/P (MAP) Pulse Ox O2 Delivery O2 Flow Rate FiO2 04/02/17 07:00 101.3 113 18 133/86 (102) 98 Room Air 101.3 Labs: Laboratory Tests Test 04/02/17 06:45 04/02/17 06:48 White Blood Count 10.3 x10^3/uL Red Blood Count 2.44 x10^6/uL Hemoglobin 7.9 g/dL Hematocrit 22.7 % Mean Corpuscular Volume 93 fL Mean Corpuscular Hemoglobin 32 pg Mean Corpuscular Hemoglobin Concent 35 g/dL Red Cell Distribution Width 20.1 % Platelet Count 208 x10^3/uL Neutrophils (%) (Auto) 84 % Lymphocytes (%) (Auto) 11 % Monocytes (%) (Auto) 5 % Eosinophils (%) (Auto) 0 % Basophils (%) (Auto) 0 % Neutrophils # (Auto) 8.6 x10^3uL Lymphocytes # (Auto) 1.1 x10^3/uL Monocytes # (Auto) 0.5 x10^3/uL Eosinophils # (Auto) 0.0 x10^3/uL Basophils # (Auto) 0.0 x10^3/uL Sodium Level 140 mmol/L Potassium Level 4.0 mmol/L Chloride Level 109 mmol/L Carbon Dioxide Level 23 mmol/L Anion Gap 8 Blood Urea Nitrogen 7 mg/dL Creatinine 0.7 mg/dL Estimated GFR (Cockcroft-Gault) 108.5 BUN/Creatinine Ratio 10 Glucose Level 107 mg/dL Calcium Level 7.2 mg/dL Total Bilirubin 1.0 mg/dL Aspartate Amino Transf (AST/SGOT) 58 U/L Alanine Aminotransferase (ALT/SGPT) 44 U/L Alkaline Phosphatase 313 U/L Total Protein 5.3 g/dL Albumin 1.9 g/dL Albumin/Globulin Ratio 0.6 PE: GEN: NAD, was talking on phone, walking around room LUNGS: clear anteriorly HEART: tachycardic ABD: BS+, non-tender today NEURO/PSYCH: A & O 3 A/P: Anemia -denies previous history -Hgb from 8.9 to 5.6 to 7.9 s/p transfusion 2 units pRBCs -no obvious bleeding Alcohol abuse, elevated LFTs (better) GERD, bloating, upper abd discomfort - better -on PPI at home, continued here -CT did note cholelithiasis Decreased appetite, weight loss Pyelonephritis (E coli) -on Rocephin Fever -- Will review w/ Dr. Lopez. NELSON STANFORD Apr 02, 2017 10:33
[2017-04-02 10:45] VITALS: BP 147/100
[2017-04-02] MEDS: PANTOPRAZOLE 40 MG TABLET.DR. PO SCH (13:22)
--- NOTE | 2017-04-02 14:05 | PDOC ---
PROGRESS NOTES Chief Complaint Chief Complaint lactic acidosis, no leukocytosis, UTI pyelonephritis IV abx, aggressive fluid hypokalemia, replace po and mag moderate malnutrition tobacco use d/o anemia of acute illness, EtOH abuse, plan: cont iv ceftriaxone for now, plan dc tmr hb ok for now, fu with GI, post 2u PRBC yesterday. fobt pending. History of Present Illness History of Present Illness still abd pain and flank pain normal stools more anemic today, plan 2 u PRBC EtOH abuse discussed hepatic dysfunction noted, consult GI good PO intake weakness persists pt very upset today, wants to sign AMA, saying nobody redo the IV access which pt pulled it out herself. eventually agree to stay for iv abx. T 101 today Vitals Vitals Vital Signs Date Time Temp Pulse Resp B/P (MAP) Pulse Ox O2 Delivery O2 Flow Rate FiO2 04/02/17 10:45 98.2 105 18 147/100 (116) 100 Room Air 98.2 Physical Exam General: Alert, Oriented X3, Cooperative, mild distress (abd pain) Heart: Regular rate Lungs: Clear Abdomen: Normal bowel sounds, Soft (very tender, mid to right to palpation, guarded, no rebound) Extremities: No clubbing, No cyanosis, No edema, Normal pulses Skin: No rashes, No breakdown Labs LABS Laboratory Tests Test 04/02/17 06:45 04/02/17 06:48 White Blood Count 10.3 x10^3/uL (4.0-11.0) Red Blood Count 2.44 x10^6/uL (3.50-5.40) Hemoglobin 7.9 g/dL (12.0-15.5) Hematocrit 22.7 % (36.0-47.0) Mean Corpuscular Volume 93 fL (79-100) Mean Corpuscular Hemoglobin 32 pg (25-35) Mean Corpuscular Hemoglobin Concent 35 g/dL (31-37) Red Cell Distribution Width 20.1 % (11.5-14.5) Platelet Count 208 x10^3/uL (140-400) Neutrophils (%) (Auto) 84 % (31-73) Lymphocytes (%) (Auto) 11 % (24-48) Monocytes (%) (Auto) 5 % (0-9) Eosinophils (%) (Auto) 0 % (0-3) Basophils (%) (Auto) 0 % (0-3) Neutrophils # (Auto) 8.6 x10^3uL (1.8-7.7) Lymphocytes # (Auto) 1.1 x10^3/uL (1.0-4.8) Monocytes # (Auto) 0.5 x10^3/uL (0.0-1.1) Eosinophils # (Auto) 0.0 x10^3/uL (0.0-0.7) Basophils # (Auto) 0.0 x10^3/uL (0.0-0.2) Sodium Level 140 mmol/L (136-145) Potassium Level 4.0 mmol/L (3.5-5.1) Chloride Level 109 mmol/L (98-107) Carbon Dioxide Level 23 mmol/L (21-32) Anion Gap 8 (6-14) Blood Urea Nitrogen 7 mg/dL (7-20) Creatinine 0.7 mg/dL (0.6-1.0) Estimated GFR (Cockcroft-Gault) 108.5 BUN/Creatinine Ratio 10 (6-20) Glucose Level 107 mg/dL (70-99) Calcium Level 7.2 mg/dL (8.5-10.1) Total Bilirubin 1.0 mg/dL (0.2-1.0) Aspartate Amino Transf (AST/SGOT) 58 U/L (15-37) Alanine Aminotransferase (ALT/SGPT) 44 U/L (14-59) Alkaline Phosphatase 313 U/L (46-116) Total Protein 5.3 g/dL (6.4-8.2) Albumin 1.9 g/dL (3.4-5.0) Albumin/Globulin Ratio 0.6 (1.0-1.7) Review of Systems Review of Systems no fever, chills, sob or chest pain Assessment and Plan Assessmemt and Plan Problems Medical Problems: (1) Acute pyelonephritis Status: Acute (2) Hypokalemia Status: Acute (3) Macrocytic anemia Status: Acute (4) Severe protein-calorie malnutrition Status: Acute (5) Urinary tract infection Status: Acute Problems: Comment Review of Relevant I have reviewed the following items rick (where applicable) has been applied. Labs Laboratory Tests Test 04/01/17 05:40 04/02/17 06:45 04/02/17 06:48 White Blood Count 10.1 x10^3/uL (4.0-11.0) 10.3 x10^3/uL (4.0-11.0) Red Blood Count 1.54 x10^6/uL (3.50-5.40) 2.44 x10^6/uL (3.50-5.40) Hemoglobin 5.6 g/dL (12.0-15.5) 7.9 g/dL (12.0-15.5) Hematocrit 16.4 % (36.0-47.0) 22.7 % (36.0-47.0) Mean Corpuscular Volume 106 fL (79-100) 93 fL (79-100) Mean Corpuscular Hemoglobin 36 pg (25-35) 32 pg (25-35) Mean Corpuscular Hemoglobin Concent 34 g/dL (31-37) 35 g/dL (31-37) Red Cell Distribution Width 16.4 % (11.5-14.5) 20.1 % (11.5-14.5) Platelet Count 131 x10^3/uL (140-400) 208 x10^3/uL (140-400) Neutrophils (%) (Auto) 83 % (31-73) 84 % (31-73) Lymphocytes (%) (Auto) 12 % (24-48) 11 % (24-48) Monocytes (%) (Auto) 5 % (0-9) 5 % (0-9) Eosinophils (%) (Auto) 0 % (0-3) 0 % (0-3) Basophils (%) (Auto) 1 % (0-3) 0 % (0-3) Neutrophils # (Auto) 8.4 x10^3uL (1.8-7.7) 8.6 x10^3uL (1.8-7.7) Lymphocytes # (Auto) 1.2 x10^3/uL (1.0-4.8) 1.1 x10^3/uL (1.0-4.8) Monocytes # (Auto) 0.5 x10^3/uL (0.0-1.1) 0.5 x10^3/uL (0.0-1.1) Eosinophils # (Auto) 0.0 x10^3/uL (0.0-0.7) 0.0 x10^3/uL (0.0-0.7) Basophils # (Auto) 0.1 x10^3/uL (0.0-0.2) 0.0 x10^3/uL (0.0-0.2) Prothrombin Time 15.2 SEC (11.7-14.0) Prothromb Time International Ratio 1.3 (0.8-1.1) Sodium Level 139 mmol/L (136-145) 140 mmol/L (136-145) Potassium Level 3.7 mmol/L (3.5-5.1) 4.0 mmol/L (3.5-5.1) Chloride Level 105 mmol/L (98-107) 109 mmol/L (98-107) Carbon Dioxide Level 25 mmol/L (21-32) 23 mmol/L (21-32) Anion Gap 9 (6-14) 8 (6-14) Blood Urea Nitrogen 14 mg/dL (7-20) 7 mg/dL (7-20) Creatinine 0.7 mg/dL (0.6-1.0) 0.7 mg/dL (0.6-1.0) Estimated GFR (Cockcroft-Gault) 108.5 108.5 BUN/Creatinine Ratio 20 (6-20) 10 (6-20) Glucose Level 82 mg/dL (70-99) 107 mg/dL (70-99) Calcium Level 6.7 mg/dL (8.5-10.1) 7.2 mg/dL (8.5-10.1) Iron Level 100 ug/dL (50-170) Total Iron Binding Capacity 127 ug/dL (250-450) Iron Saturation 79 % (15-34) Total Bilirubin 1.8 mg/dL (0.2-1.0) 1.0 mg/dL (0.2-1.0) Aspartate Amino Transf (AST/SGOT) 81 U/L (15-37) 58 U/L (15-37) Alanine Aminotransferase (ALT/SGPT) 49 U/L (14-59) 44 U/L (14-59) Alkaline Phosphatase 312 U/L (46-116) 313 U/L (46-116) Lactate Dehydrogenase 418 U/L (81-234) Total Protein 5.7 g/dL (6.4-8.2) 5.3 g/dL (6.4-8.2) Albumin 2.1 g/dL (3.4-5.0) 1.9 g/dL (3.4-5.0) Albumin/Globulin Ratio 0.6 (1.0-1.7) 0.6 (1.0-1.7) Laboratory Tests Test 04/02/17 06:45 04/02/17 06:48 White Blood Count 10.3 x10^3/uL (4.0-11.0) Red Blood Count 2.44 x10^6/uL (3.50-5.40) Hemoglobin 7.9 g/dL (12.0-15.5) Hematocrit 22.7 % (36.0-47.0) Mean Corpuscular Volume 93 fL (79-100) Mean Corpuscular Hemoglobin 32 pg (25-35) Mean Corpuscular Hemoglobin Concent 35 g/dL (31-37) Red Cell Distribution Width 20.1 % (11.5-14.5) Platelet Count 208 x10^3/uL (140-400) Neutrophils (%) (Auto) 84 % (31-73) Lymphocytes (%) (Auto) 11 % (24-48) Monocytes (%) (Auto) 5 % (0-9) Eosinophils (%) (Auto) 0 % (0-3) Basophils (%) (Auto) 0 % (0-3) Neutrophils # (Auto) 8.6 x10^3uL (1.8-7.7) Lymphocytes # (Auto) 1.1 x10^3/uL (1.0-4.8) Monocytes # (Auto) 0.5 x10^3/uL (0.0-1.1) Eosinophils # (Auto) 0.0 x10^3/uL (0.0-0.7) Basophils # (Auto) 0.0 x10^3/uL (0.0-0.2) Sodium Level 140 mmol/L (136-145) Potassium Level 4.0 mmol/L (3.5-5.1) Chloride Level 109 mmol/L (98-107) Carbon Dioxide Level 23 mmol/L (21-32) Anion Gap 8 (6-14) Blood Urea Nitrogen 7 mg/dL (7-20) Creatinine 0.7 mg/dL (0.6-1.0) Estimated GFR (Cockcroft-Gault) 108.5 BUN/Creatinine Ratio 10 (6-20) Glucose Level 107 mg/dL (70-99) Calcium Level 7.2 mg/dL (8.5-10.1) Total Bilirubin 1.0 mg/dL (0.2-1.0) Aspartate Amino Transf (AST/SGOT) 58 U/L (15-37) Alanine Aminotransferase (ALT/SGPT) 44 U/L (14-59) Alkaline Phosphatase 313 U/L (46-116) Total Protein 5.3 g/dL (6.4-8.2) Albumin 1.9 g/dL (3.4-5.0) Albumin/Globulin Ratio 0.6 (1.0-1.7) Microbiology 03/30/17 Blood Culture - Final, Complete 03/30/17 Blood Culture Result 1 (RENÉ) - Final, Complete 03/30/17 Urine Culture - Final, Complete 03/30/17 Urine Culture Result 1 (RENÉ) - Final, Complete 03/30/17 Antimicrobic Susceptibility - Final, Complete Medications Current Medications Sodium Chloride 1,000 ml @ 1,095 mls/hr Q55M IV Last administered on 18:12; Start 03/30/17 at 15:09; Stop 03/30/17 at 17:09; Status DC Acetaminophen (Tylenol) 1,000 mg 1X ONCE PO Last administered on 03/30/17 15: 34; Start 03/30/17 at 15:30; Stop 03/30/17 at 15:31; Status DC Potassium Chloride (Klor-Con) 40 meq 1X ONCE PO Last administered on 16:32; Start 03/30/17 at 16:30; Stop 03/30/17 at 16:31; Status DC Iohexol (Omnipaque 300 Mg/ml) 75 ml 1X ONCE IV Last administered on 03/30/17 16:36; Start 03/30/17 at 16:30; Stop 03/30/17 at 16:31; Status DC Info (Do NOT chart on this entry -- for MONITORING) 1 each PRN DAILY PRN MC SEE COMMENTS; Start 03/30/17 at 16:30; Stop 04/01/17 at 16:29; Status DC Ceftriaxone Sodium 1 gm/ Sodium Chloride 50 ml @ 100 mls/hr Q24H IV Last administered on 04/01/17 22:16; Start 03/30/17 at 18:00 Ondansetron HCl (Zofran) 4 mg PRN Q8HRS PRN IV NAUSEA/VOMITING; Start 03/30/17 at 17:15; Stop 03/31/17 at 17:14; Status DC Fentanyl Citrate (Fentanyl 2ml Vial) 50 mcg PRN Q2HR PRN IV PAIN Last administered on 03/31/17 06:28; Start 03/30/17 at 17:15; Stop 03/31/17 at 17:14 ; Status DC Sodium Chloride 1,000 ml @ 150 mls/hr Q6H40M IV ; Start 03/30/17 at 17:08; Stop 03/30/17 at 18:04; Status DC Acetaminophen (Tylenol) 650 mg PRN Q4HRS PRN PO FEVER Last administered on 03/30 22:40; Start 03/30/17 at 17:15; Stop 03/31/17 at 17:14; Status DC Magnesium Sulfate/ Dextrose 50 ml @ 25 mls/hr 1X ONCE IV Last administered on 03/30/17 19:21; Start 03/30/17 at 18:00; Stop 03/30/17 at 19:59; Status DC Thiamine Mononitrate (Vitamin B-1) 100 mg DAILY PO Last administered on 09:45; Start 03/30/17 at 18:30 Vitamin B Complex/ Vitamin C (Marivel-Judah) 1 tab DAILY PO Last administered on 09:45; Start 03/30/17 at 18:30 Potassium Chloride (KCl Oral Soln) 40 meq 1X ONCE PO Last administered on 03/30 18:38; Start 03/30/17 at 18:30; Stop 03/30/17 at 18:43; Status DC Potassium Chloride (KCl Oral Soln) 20 meq DAILY PO ; Start 03/31/17 at 09:00; Stop 03/31/17 at 09:00; Status DC Potassium Chloride/Sodium Chloride 1,000 ml @ 100 mls/hr Q10H IV Last administered on 04/02/17 06:28; Start 03/30/17 at 19:30 Nicotine (Nicoderm Cq 7mg) 1 patch PRN DAILY PRN TD SMOKING CESSATION; Start at 18:15 Zolpidem Tartrate (Ambien) 5 mg PRN QHS PRN PO INSOMNIA Last administered on 22:16; Start 03/30/17 at 20:15 Potassium Chloride (Klor-Con) 20 meq DAILYWBKFT PO Last administered on 09:45; Start 03/31/17 at 08:00 Potassium Chloride (Klor-Con) 40 meq 1X ONCE PO Last administered on 07:39; Start 03/31/17 at 07:00; Stop 03/31/17 at 07:02; Status DC Polyethylene Glycol (miraLAX PACKET) 17 gm 1X ONCE PO Last administered on 14:22; Start 03/31/17 at 13:45; Stop 03/31/17 at 13:46; Status DC Polyethylene Glycol (miraLAX PACKET) 17 gm PRN DAILY PRN PO CONSTIPATION; Start 03/31/17 at 13:45 Morphine Sulfate (Morphine Ir) 15 mg PRN Q4HRS PRN PO PAIN Last administered on 04/01/17 22:16; Start 03/31/17 at 13:45 Magnesium Sulfate/ Dextrose 100 ml @ 25 mls/hr 1X ONCE IV Last administered on 03/31/17 15:15; Start 03/31/17 at 15:00; Stop 03/31/17 at 18:59; Status DC Magnesium Sulfate/ Dextrose 100 ml @ 25 mls/hr 1X ONCE IV Last administered on 04/01/17 09:43; Start 04/01/17 at 09:00; Stop 04/01/17 at 12:59; Status DC Pantoprazole Sodium (Protonix) 40 mg DAILYAC PO Last administered on 04/02/17 13:22; Start 04/02/17 at 11:30 Acetaminophen (Tylenol) 650 mg PRN Q4HRS PRN PO MILD PAIN / TEMP Last administered on 04/01/17 16:44; Start 04/01/17 at 16:45 Active Scripts Active Reported Seroquel (Quetiapine Fumarate) 100 Mg Tablet 1 Tab PO QHS Vitals/I & O Vital Sign - Last 24 Hours 04/01/17 04/01/17 04/01/17 04/01/17 15:00 16:52 17:11 18:11 Temp 101.5 100.5 99.0 98.8 101.5 100.5 99.0 98.8 Pulse 124 111 111 58 Resp 18 18 18 18 B/P (MAP) 151/89 (109) 130/80 125/82 117/70 Pulse Ox 100 O2 Delivery Room Air 04/01/17 04/01/17 04/01/17 04/01/17 18:45 19:00 20:00 20:01 Temp 98.8 98.0 98.2 98.8 98.0 98.2 Pulse 62 107 100 Resp 18 18 16 B/P (MAP) 121/65 124/91 (102) 130/80 Pulse Ox 98 O2 Delivery Room Air Room Air 04/01/17 04/01/17 04/01/17 04/01/17 20:16 20:16 21:16 22:16 Temp 97.4 97.9 98.8 97.4 97.9 98.8 Pulse 102 102 105 Resp 16 16 16 B/P (MAP) 134/83 131/84 156/94 Pulse Ox 98 O2 Delivery Room Air 04/01/17 04/01/17 04/01/17 04/01/17 22:16 22:50 23:00 23:16 Temp 99.5 99.5 99.5 99.5 99.5 99.5 Pulse 110 115 115 Resp 16 18 20 B/P (MAP) 155/98 149/100 149/100 (116) Pulse Ox 100 98 O2 Delivery Room Air Room Air 04/02/17 04/02/17 04/02/17 03:00 07:00 10:45 Temp 99.2 101.3 98.2 99.2 101.3 98.2 Pulse 114 113 105 Resp 20 18 18 B/P (MAP) 128/87 (101) 133/86 (102) 147/100 (116) Pulse Ox 96 98 100 O2 Delivery Room Air Room Air Room Air Intake and Output 04/01/17 04/01/17 04/02/17 14:59 22:59 06:59 Intake Total 500 ml 2275 ml 1260 ml Output Total 2 ml 2500 ml Balance 500 ml 2273 ml -1240 ml NAKIA GONZALEZ MD Apr 02, 2017 14:05
[2017-04-02 15:00] VITALS: BP 149/101
[2017-04-02] MEDS: MORPHINE IR 15 MG TABLET PO PRN ×2 (15:31→20:59)
[2017-04-02 19:00] VITALS: BP 148/111
[2017-04-02] MEDS: ZOLPIDEM 5 MG TABLET. PO PRN (20:59)
[2017-04-02 23:00] VITALS: BP 149/104
[2017-04-03] VITALS (7 sets, daily range): BP systolic 141–161; BP diastolic 96–121
[2017-04-03] MEDS: PANTOPRAZOLE 40 MG TABLET.DR. PO SCH (07:50)
[2017-04-03] MEDS: POTASSIUM CHLORIDE 20 MEQ TABLET.ER. PO SCH (07:51)
[2017-04-03 08:15] LABS: RED BLOOD COUNT 2.56 x10^6/uL (3.50-5.40); WHITE BLOOD COUNT 13.3 x10^3/uL (4.0-11.0)
[2017-04-03 08:16] LABS: BASO % 0 % (0-3); EOS % 0 % (0-3); HEMATOCRIT 24.2 % (36.0-47.0); HEMOGLOBIN 8.1 g/dL (12.0-15.5); LYMPH # 1.5 x10^3/uL (1.0-4.8); LYMPH % 11 % (24-48); MEAN CORPUSCULAR HEMOGLOBIN 32 pg (25-35); MEAN CORPUSCULAR HGB CONC 33 g/dL (31-37); MEAN CORPUSCULAR VOLUME 95 fL (79-100); MONO % 5 % (0-9); NEUT % 84 % (31-73); PLATELET COUNT 326 x10^3/uL (140-400); RED CELL DISTRIBUTION WIDTH 19.8 % (11.5-14.5)
[2017-04-03] MEDS: MORPHINE IR 15 MG TABLET PO PRN ×2 (08:31→22:02)
[2017-04-03] MEDS: THIAMINE 100 MG TABLET. PO SCH (08:31)
[2017-04-03 08:37] LABS: CALCIUM 8.6 mg/dL (8.5-10.1); CREATININE 0.7 mg/dL (0.6-1.0); GFR 108.5; POTASSIUM 4.1 mmol/L (3.5-5.1)
[2017-04-03] MEDS: FOLIC/VIT B COMP W-C (RENAL) TABLET. PO SCH (09:00)
[2017-04-03] MEDS ORDERED: CARVEDILOL 6.25 MG TABLET. PO SCH (10:00)
[2017-04-03 11:36] LABS: NEG OBC FOB NEG; POS OBC FOB POS
--- NOTE | 2017-04-03 11:48 | PDOC ---
PROGRESS NOTES Chief Complaint Chief Complaint lactic acidosis, no leukocytosis, UTI pyelonephritis IV abx, aggressive fluid hypokalemia, replace po and mag moderate malnutrition tobacco use d/o anemia of acute illness, EtOH abuse, plan: cont iv ceftriaxone hb ok for now, fu with GI, post 2u PRBC yesterday. fobt pending. check EKG showed SVT as reported, will get card consult check CXR, echo add lisinopril, coreg decrease ivf to 75cc/h History of Present Illness History of Present Illness still abd pain and flank pain normal stools more anemic today, plan 2 u PRBC EtOH abuse discussed hepatic dysfunction noted, consult GI good PO intake weakness persists still fever, tachycardia, exertional sob, HTN 04/03 Vitals Vitals Vital Signs Date Time Temp Pulse Resp B/P (MAP) Pulse Ox O2 Delivery O2 Flow Rate FiO2 04/03/17 11:00 99.7 117 21 141/107 (118) 95 Room Air 99.7 Physical Exam General: Alert, Oriented X3, Cooperative, mild distress (abd pain) Heart: Regular rate Lungs: Clear Abdomen: Normal bowel sounds, Soft (very tender, mid to right to palpation, guarded, no rebound) Extremities: No clubbing, No cyanosis, No edema, Normal pulses Skin: No rashes, No breakdown Labs LABS Laboratory Tests Test 04/03/17 07:30 04/03/17 11:00 White Blood Count 13.3 x10^3/uL (4.0-11.0) Red Blood Count 2.56 x10^6/uL (3.50-5.40) Hemoglobin 8.1 g/dL (12.0-15.5) Hematocrit 24.2 % (36.0-47.0) Mean Corpuscular Volume 95 fL (79-100) Mean Corpuscular Hemoglobin 32 pg (25-35) Mean Corpuscular Hemoglobin Concent 33 g/dL (31-37) Red Cell Distribution Width 19.8 % (11.5-14.5) Platelet Count 326 x10^3/uL (140-400) Neutrophils (%) (Auto) 84 % (31-73) Lymphocytes (%) (Auto) 11 % (24-48) Monocytes (%) (Auto) 5 % (0-9) Eosinophils (%) (Auto) 0 % (0-3) Basophils (%) (Auto) 0 % (0-3) Neutrophils # (Auto) 11.1 x10^3uL (1.8-7.7) Lymphocytes # (Auto) 1.5 x10^3/uL (1.0-4.8) Monocytes # (Auto) 0.6 x10^3/uL (0.0-1.1) Eosinophils # (Auto) 0.0 x10^3/uL (0.0-0.7) Basophils # (Auto) 0.0 x10^3/uL (0.0-0.2) Sodium Level 138 mmol/L (136-145) Potassium Level 4.1 mmol/L (3.5-5.1) Chloride Level 106 mmol/L (98-107) Carbon Dioxide Level 23 mmol/L (21-32) Anion Gap 9 (6-14) Blood Urea Nitrogen 5 mg/dL (7-20) Creatinine 0.7 mg/dL (0.6-1.0) Estimated GFR (Cockcroft-Gault) 108.5 Glucose Level 98 mg/dL (70-99) Calcium Level 8.6 mg/dL (8.5-10.1) Stool Occult Blood Negative (NEG) Review of Systems Review of Systems no chills, sob or chest pain Assessment and Plan Assessmemt and Plan Problems Medical Problems: (1) Acute pyelonephritis Status: Acute (2) Hypokalemia Status: Acute (3) Macrocytic anemia Status: Acute (4) Severe protein-calorie malnutrition Status: Acute (5) Urinary tract infection Status: Acute Problems: Comment Review of Relevant I have reviewed the following items rick (where applicable) has been applied. Labs Laboratory Tests Test 04/02/17 06:45 04/02/17 06:48 04/03/17 07:30 04/03/17 11:00 White Blood Count 10.3 x10^3/uL (4.0-11.0) 13.3 x10^3/uL (4.0-11.0) Red Blood Count 2.44 x10^6/uL (3.50-5.40) 2.56 x10^6/uL (3.50-5.40) Hemoglobin 7.9 g/dL (12.0-15.5) 8.1 g/dL (12.0-15.5) Hematocrit 22.7 % (36.0-47.0) 24.2 % (36.0-47.0) Mean Corpuscular Volume 93 fL (79-100) 95 fL (79-100) Mean Corpuscular Hemoglobin 32 pg (25-35) 32 pg (25-35) Mean Corpuscular Hemoglobin Concent 35 g/dL (31-37) 33 g/dL (31-37) Red Cell Distribution Width 20.1 % (11.5-14.5) 19.8 % (11.5-14.5) Platelet Count 208 x10^3/uL (140-400) 326 x10^3/uL (140-400) Neutrophils (%) (Auto) 84 % (31-73) 84 % (31-73) Lymphocytes (%) (Auto) 11 % (24-48) 11 % (24-48) Monocytes (%) (Auto) 5 % (0-9) 5 % (0-9) Eosinophils (%) (Auto) 0 % (0-3) 0 % (0-3) Basophils (%) (Auto) 0 % (0-3) 0 % (0-3) Neutrophils # (Auto) 8.6 x10^3uL (1.8-7.7) 11.1 x10^3uL (1.8-7.7) Lymphocytes # (Auto) 1.1 x10^3/uL (1.0-4.8) 1.5 x10^3/uL (1.0-4.8) Monocytes # (Auto) 0.5 x10^3/uL (0.0-1.1) 0.6 x10^3/uL (0.0-1.1) Eosinophils # (Auto) 0.0 x10^3/uL (0.0-0.7) 0.0 x10^3/uL (0.0-0.7) Basophils # (Auto) 0.0 x10^3/uL (0.0-0.2) 0.0 x10^3/uL (0.0-0.2) Sodium Level 140 mmol/L (136-145) 138 mmol/L (136-145) Potassium Level 4.0 mmol/L (3.5-5.1) 4.1 mmol/L (3.5-5.1) Chloride Level 109 mmol/L (98-107) 106 mmol/L (98-107) Carbon Dioxide Level 23 mmol/L (21-32) 23 mmol/L (21-32) Anion Gap 8 (6-14) 9 (6-14) Blood Urea Nitrogen 7 mg/dL (7-20) 5 mg/dL (7-20) Creatinine 0.7 mg/dL (0.6-1.0) 0.7 mg/dL (0.6-1.0) Estimated GFR (Cockcroft-Gault) 108.5 108.5 BUN/Creatinine Ratio 10 (6-20) Glucose Level 107 mg/dL (70-99) 98 mg/dL (70-99) Calcium Level 7.2 mg/dL (8.5-10.1) 8.6 mg/dL (8.5-10.1) Total Bilirubin 1.0 mg/dL (0.2-1.0) Aspartate Amino Transf (AST/SGOT) 58 U/L (15-37) Alanine Aminotransferase (ALT/SGPT) 44 U/L (14-59) Alkaline Phosphatase 313 U/L (46-116) Total Protein 5.3 g/dL (6.4-8.2) Albumin 1.9 g/dL (3.4-5.0) Albumin/Globulin Ratio 0.6 (1.0-1.7) Stool Occult Blood Negative (NEG) Laboratory Tests Test 04/03/17 07:30 04/03/17 11:00 White Blood Count 13.3 x10^3/uL (4.0-11.0) Red Blood Count 2.56 x10^6/uL (3.50-5.40) Hemoglobin 8.1 g/dL (12.0-15.5) Hematocrit 24.2 % (36.0-47.0) Mean Corpuscular Volume 95 fL (79-100) Mean Corpuscular Hemoglobin 32 pg (25-35) Mean Corpuscular Hemoglobin Concent 33 g/dL (31-37) Red Cell Distribution Width 19.8 % (11.5-14.5) Platelet Count 326 x10^3/uL (140-400) Neutrophils (%) (Auto) 84 % (31-73) Lymphocytes (%) (Auto) 11 % (24-48) Monocytes (%) (Auto) 5 % (0-9) Eosinophils (%) (Auto) 0 % (0-3) Basophils (%) (Auto) 0 % (0-3) Neutrophils # (Auto) 11.1 x10^3uL (1.8-7.7) Lymphocytes # (Auto) 1.5 x10^3/uL (1.0-4.8) Monocytes # (Auto) 0.6 x10^3/uL (0.0-1.1) Eosinophils # (Auto) 0.0 x10^3/uL (0.0-0.7) Basophils # (Auto) 0.0 x10^3/uL (0.0-0.2) Sodium Level 138 mmol/L (136-145) Potassium Level 4.1 mmol/L (3.5-5.1) Chloride Level 106 mmol/L (98-107) Carbon Dioxide Level 23 mmol/L (21-32) Anion Gap 9 (6-14) Blood Urea Nitrogen 5 mg/dL (7-20) Creatinine 0.7 mg/dL (0.6-1.0) Estimated GFR (Cockcroft-Gault) 108.5 Glucose Level 98 mg/dL (70-99) Calcium Level 8.6 mg/dL (8.5-10.1) Stool Occult Blood Negative (NEG) Microbiology 03/30/17 Blood Culture - Final, Complete 03/30/17 Blood Culture Result 1 (RENÉ) - Final, Complete 03/30/17 Urine Culture - Final, Complete 03/30/17 Urine Culture Result 1 (RENÉ) - Final, Complete 03/30/17 Antimicrobic Susceptibility - Final, Complete Medications Current Medications Sodium Chloride 1,000 ml @ 1,095 mls/hr Q55M IV Last administered on 18:12; Start 03/30/17 at 15:09; Stop 03/30/17 at 17:09; Status DC Acetaminophen (Tylenol) 1,000 mg 1X ONCE PO Last administered on 03/30/17 15: 34; Start 03/30/17 at 15:30; Stop 03/30/17 at 15:31; Status DC Potassium Chloride (Klor-Con) 40 meq 1X ONCE PO Last administered on 16:32; Start 03/30/17 at 16:30; Stop 03/30/17 at 16:31; Status DC Iohexol (Omnipaque 300 Mg/ml) 75 ml 1X ONCE IV Last administered on 03/30/17 16:36; Start 03/30/17 at 16:30; Stop 03/30/17 at 16:31; Status DC Info (Do NOT chart on this entry -- for MONITORING) 1 each PRN DAILY PRN MC SEE COMMENTS; Start 03/30/17 at 16:30; Stop 04/01/17 at 16:29; Status DC Ceftriaxone Sodium 1 gm/ Sodium Chloride 50 ml @ 100 mls/hr Q24H IV Last administered on 04/02/17 17:57; Start 03/30/17 at 18:00 Ondansetron HCl (Zofran) 4 mg PRN Q8HRS PRN IV NAUSEA/VOMITING; Start 03/30/17 at 17:15; Stop 03/31/17 at 17:14; Status DC Fentanyl Citrate (Fentanyl 2ml Vial) 50 mcg PRN Q2HR PRN IV PAIN Last administered on 03/31/17 06:28; Start 03/30/17 at 17:15; Stop 03/31/17 at 17:14 ; Status DC Sodium Chloride 1,000 ml @ 150 mls/hr Q6H40M IV ; Start 03/30/17 at 17:08; Stop 03/30/17 at 18:04; Status DC Acetaminophen (Tylenol) 650 mg PRN Q4HRS PRN PO FEVER Last administered on 03/30 22:40; Start 03/30/17 at 17:15; Stop 03/31/17 at 17:14; Status DC Magnesium Sulfate/ Dextrose 50 ml @ 25 mls/hr 1X ONCE IV Last administered on 03/30/17 19:21; Start 03/30/17 at 18:00; Stop 03/30/17 at 19:59; Status DC Thiamine Mononitrate (Vitamin B-1) 100 mg DAILY PO Last administered on 08:31; Start 03/30/17 at 18:30 Vitamin B Complex/ Vitamin C (Marivel-Judah) 1 tab DAILY PO Last administered on 09:00; Start 03/30/17 at 18:30 Potassium Chloride (KCl Oral Soln) 40 meq 1X ONCE PO Last administered on 03/30 18:38; Start 03/30/17 at 18:30; Stop 03/30/17 at 18:43; Status DC Potassium Chloride (KCl Oral Soln) 20 meq DAILY PO ; Start 03/31/17 at 09:00; Stop 03/31/17 at 09:00; Status DC Potassium Chloride/Sodium Chloride 1,000 ml @ 100 mls/hr Q10H IV Last administered on 04/02/17 21:00; Start 03/30/17 at 19:30 Nicotine (Nicoderm Cq 7mg) 1 patch PRN DAILY PRN TD SMOKING CESSATION; Start at 18:15 Zolpidem Tartrate (Ambien) 5 mg PRN QHS PRN PO INSOMNIA Last administered on 20:59; Start 03/30/17 at 20:15 Potassium Chloride (Klor-Con) 20 meq DAILYWBKFT PO Last administered on 07:51; Start 03/31/17 at 08:00 Potassium Chloride (Klor-Con) 40 meq 1X ONCE PO Last administered on 07:39; Start 03/31/17 at 07:00; Stop 03/31/17 at 07:02; Status DC Polyethylene Glycol (miraLAX PACKET) 17 gm 1X ONCE PO Last administered on 14:22; Start 03/31/17 at 13:45; Stop 03/31/17 at 13:46; Status DC Polyethylene Glycol (miraLAX PACKET) 17 gm PRN DAILY PRN PO CONSTIPATION; Start 03/31/17 at 13:45 Morphine Sulfate (Morphine Ir) 15 mg PRN Q4HRS PRN PO PAIN Last administered on 04/03/17 08:31; Start 03/31/17 at 13:45 Magnesium Sulfate/ Dextrose 100 ml @ 25 mls/hr 1X ONCE IV Last administered on 03/31/17 15:15; Start 03/31/17 at 15:00; Stop 03/31/17 at 18:59; Status DC Magnesium Sulfate/ Dextrose 100 ml @ 25 mls/hr 1X ONCE IV Last administered on 04/01/17 09:43; Start 04/01/17 at 09:00; Stop 04/01/17 at 12:59; Status DC Pantoprazole Sodium (Protonix) 40 mg DAILYAC PO Last administered on 04/03/17 07:50; Start 04/02/17 at 11:30 Acetaminophen (Tylenol) 650 mg PRN Q4HRS PRN PO MILD PAIN / TEMP Last administered on 04/01/17 16:44; Start 04/01/17 at 16:45 Carvedilol (Coreg) 6.25 mg BIDWMEALS PO Last administered on 04/03/17 09:39; Start 04/03/17 at 10:00 Active Scripts Active Reported Seroquel (Quetiapine Fumarate) 100 Mg Tablet 1 Tab PO QHS Vitals/I & O Vital Sign - Last 24 Hours 04/02/17 04/02/17 04/02/17 04/02/17 15:00 19:00 20:00 20:59 Temp 98.8 98.4 98.8 98.4 Pulse 112 116 Resp 18 19 B/P (MAP) 149/101 (117) 148/111 (123) Pulse Ox 100 99 100 O2 Delivery Room Air Room Air Room Air Room Air 04/02/17 04/03/17 04/03/17 04/03/17 23:00 03:33 07:00 07:00 Temp 99.7 100.2 96.4 98.1 99.7 100.2 96.4 98.1 Pulse 127 114 134 Resp 21 20 22 B/P (MAP) 149/104 (119) 147/98 (114) 153/107 (122) 161/111 (128) Pulse Ox 94 96 99 O2 Delivery Room Air Room Air Room Air 04/03/17 04/03/17 04/03/17 04/03/17 08:00 08:31 09:31 09:39 Pulse 134 Resp 18 B/P (MAP) 161/111 Pulse Ox 96 96 O2 Delivery Room Air Room Air Room Air 04/03/17 11:00 Temp 99.7 99.7 Pulse 117 Resp 21 B/P (MAP) 141/107 (118) Pulse Ox 95 O2 Delivery Room Air Intake and Output 04/02/17 04/02/17 04/03/17 15:00 23:00 07:00 Intake Total 1000 ml 2775 ml Balance 1000 ml 2775 ml NAKIA GONZALEZ MD Apr 03, 2017 11:48
[2017-04-03] MEDS ORDERED: LISINOPRIL 20 MG TABLET PO SCH (12:00)
--- NOTE | 2017-04-03 12:11 | PDOC2 ---
GELY VALLES [employer]OR[employer] MANAGEMENT INTERN 04/03/17 1211: CARDIAC CONSULT DATE OF CONSULT Date of Consult DATE: 04/03/17 TIME: 11:59 REASON FOR CONSULT Reason for Consult: SVT REFERRING PHYSICIAN Referring Physician: Radha SOURCE Source: Chart review, Patient HISTORY OF PRESENT ILLNESS HISTORY OF PRESENT ILLNESS This is a pleasant 46 yo female admitted for complains of nausea and chills. Reports that she is visiting from [place] for a family reunion held last Thursday. Thursday she started feeling bad, having schills and shivering. Also was dry heaving. No complains of any chest pain, SOA. Reports no hx of CV diseases. Upon admission she was noted with severe anemia, pyelonephritis, sepsis, and intermittent fever. Also was noted with tachycardia. Reports no prior hx of VTE, arrhythmia and does not follow any slasher tender helper. She does smoke tobacco, and drinks ETOH heavy. No recreational drugs. Prior to her visit in , she denies any CP, SOA, CARBALLO. No significant decrease i activity tolerance. Verbalized that she is due to go home tomorrow. PAST MEDICAL HISTORY Cardiovascular: HTN Pulmonary: COPD (?) CENTRAL NERVOUS SYSTEM: Other (No pertinent history) GI: GERD Heme/Onc: No pertinent hx Hepatobiliary: No pertinent hx Psych: Bipolar Musculoskeletal: Other (No pertinent history) Rheumatologic: No pertinent hx Infectious disease: No pertinent hx ENT: No pertinent hx Renal/: No pertinent hx Endocrine: No pertinent hx Dermatology: No pertinent hx PAST SURGICAL HISTORY Past Surgical History: Tonsillectomy, Other (facial surgery from trauma) FAMILY HISTORY Family History: Diabetes SOCIAL HISTORY Smoke: <1 pack per day ALCOHOL: heavy (vodka 1 pint daily) CURRENT MEDICATIONS CURRENT MEDICATIONS Current Medications Medications (Trade) Dose Ordered Sig/Hang Route PRN Reason Start Time Stop Time Status Last Admin Dose Admin Carvedilol (Coreg) 6.25 mg BIDWMEALS PO 04/03/17 10:00 04/03/17 09:39 ALLERGIES ALLERGIES: Coded Allergies: No Known Drug Allergies (Unverified , 03/30/17) ROS Review of System 14 point ROS evaluated with pertinent positives noted per HPI PHYSICAL EXAM General: Alert, Oriented X3, Cooperative, No acute distress HEENT: Atraumatic, Mucous membr. moist/pink Lungs: Clear to auscultation, Normal air movement Heart: Regular rate (sinsu tach 120s), Normal S1, Normal S2, Other (S4; 2/6 systolic murmur to LLS border) Abdomen: Soft, No tenderness Extremities: No cyanosis, No edema Skin: No breakdown, No significant lesion Neuro: Normal speech, Sensation intact Psych/Mental Status: Mental status NL, Mood NL MUSCULOSKELETAL: Osteoarthritic changes both hands VITALS VITALS Vital Signs Date Time Temp Pulse Resp B/P (MAP) Pulse Ox O2 Delivery O2 Flow Rate FiO2 04/03/17 11:00 99.7 117 21 141/107 (118) 95 Room Air 99.7 LABS Lab: Laboratory Tests Test 04/03/17 07:30 04/03/17 11:00 White Blood Count 13.3 x10^3/uL (4.0-11.0) Red Blood Count 2.56 x10^6/uL (3.50-5.40) Hemoglobin 8.1 g/dL (12.0-15.5) Hematocrit 24.2 % (36.0-47.0) Mean Corpuscular Volume 95 fL (79-100) Mean Corpuscular Hemoglobin 32 pg (25-35) Mean Corpuscular Hemoglobin Concent 33 g/dL (31-37) Red Cell Distribution Width 19.8 % (11.5-14.5) Platelet Count 326 x10^3/uL (140-400) Neutrophils (%) (Auto) 84 % (31-73) Lymphocytes (%) (Auto) 11 % (24-48) Monocytes (%) (Auto) 5 % (0-9) Eosinophils (%) (Auto) 0 % (0-3) Basophils (%) (Auto) 0 % (0-3) Neutrophils # (Auto) 11.1 x10^3uL (1.8-7.7) Lymphocytes # (Auto) 1.5 x10^3/uL (1.0-4.8) Monocytes # (Auto) 0.6 x10^3/uL (0.0-1.1) Eosinophils # (Auto) 0.0 x10^3/uL (0.0-0.7) Basophils # (Auto) 0.0 x10^3/uL (0.0-0.2) Sodium Level 138 mmol/L (136-145) Potassium Level 4.1 mmol/L (3.5-5.1) Chloride Level 106 mmol/L (98-107) Carbon Dioxide Level 23 mmol/L (21-32) Anion Gap 9 (6-14) Blood Urea Nitrogen 5 mg/dL (7-20) Creatinine 0.7 mg/dL (0.6-1.0) Estimated GFR (Cockcroft-Gault) 108.5 Glucose Level 98 mg/dL (70-99) Calcium Level 8.6 mg/dL (8.5-10.1) Stool Occult Blood Negative (NEG) ASSESSMENT/PLAN ASSESSMENT/PLAN 1. SVT: sinus tachycardia. reactive due to multiple contributors as noted below. 2. Fever/UTI/pyelonephritis/sepsis/bacteremia 3. Alcoholism/tobaccoism 4. Acute anemia: initially at 5.6, Post transfusion Hgb 8.1 5. HTN: labile 6. Protein malnutrition 7. Hx of bipolar disorder: on lithium and Seroquel. Recommendations 1. Preliminary TTE with normal EF and LV systolic function with LVH and possible inferior wall hypokinesis. CP free, no SOA. She will need ischemic workup once her extracardiac issues are resolved and once she goes back to [place] via her PCP and referral to slasher tender helper 2. Follow ID/GI recommendations 3. Discussed lifestyle modifications, including ETOH abstinence, tobaccoism. 4. Correct extracardiac factors. 5. Continue lisinopril and coreg 6. Supportive care. Repeat EKG. Recheck Mg. Start ECASA 81. when ok with GI. Problems: LORETO CORRAL MD 04/03/17 1712: CARDIAC CONSULT ALLERGIES ALLERGIES: Coded Allergies: No Known Drug Allergies (Unverified , 03/30/17) ASSESSMENT/PLAN ASSESSMENT/PLAN Pt. seen and examined. Agree with above RESIDENTIAL TEAM LEADER note with following comments: 46 y.o woman with multiple complaints. On exam she has a systolic murmur. She has significant CMP with an EF of 35%. Severe MR. 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 Thanks for consult. Problems: GELY VALLES APRN Apr 03, 2017 12:11 LORETO CORRAL MD Apr 03, 2017 17:12
--- NOTE | 2017-04-03 12:48 | RAD ---
Indication: Shortness of air. Time of exam 12:40 PM Correlation is made with prior study from 03/30/2017. The heart is enlarged. Lungs are clear. No infiltrate or failure is detected. No effusion or pneumothorax is seen. Impression: No acute abnormality is detected.
--- NOTE | 2017-04-03 13:22 | PDOC ---
Subjective: Subjective: Feeling better. No appetite. No abd pain. Objective: Vital Signs: Vital Signs Date Time Temp Pulse Resp B/P (MAP) Pulse Ox O2 Delivery O2 Flow Rate FiO2 04/03/17 12:35 117 141/107 04/03/17 11:00 99.7 21 95 Room Air 99.7 Labs: Laboratory Tests Test 04/03/17 07:30 04/03/17 11:00 White Blood Count 13.3 x10^3/uL Red Blood Count 2.56 x10^6/uL Hemoglobin 8.1 g/dL Hematocrit 24.2 % Mean Corpuscular Volume 95 fL Mean Corpuscular Hemoglobin 32 pg Mean Corpuscular Hemoglobin Concent 33 g/dL Red Cell Distribution Width 19.8 % Platelet Count 326 x10^3/uL Neutrophils (%) (Auto) 84 % Lymphocytes (%) (Auto) 11 % Monocytes (%) (Auto) 5 % Eosinophils (%) (Auto) 0 % Basophils (%) (Auto) 0 % Neutrophils # (Auto) 11.1 x10^3uL Lymphocytes # (Auto) 1.5 x10^3/uL Monocytes # (Auto) 0.6 x10^3/uL Eosinophils # (Auto) 0.0 x10^3/uL Basophils # (Auto) 0.0 x10^3/uL Sodium Level 138 mmol/L Potassium Level 4.1 mmol/L Chloride Level 106 mmol/L Carbon Dioxide Level 23 mmol/L Anion Gap 9 Blood Urea Nitrogen 5 mg/dL Creatinine 0.7 mg/dL Estimated GFR (Cockcroft-Gault) 108.5 Glucose Level 98 mg/dL Calcium Level 8.6 mg/dL Stool Occult Blood Negative PE: GEN: NAD LUNGS: clear HEART: tachy ABD: S/ND/NT NEURO/PSYCH: A & O 3 A/P: Anemia -Hgb stable after transfusions -hemoccult neg Alcoholism GERD, bloating, upper abd discomfort - better -on PPI at home, continued here -CT did note cholelithiasis Decreased appetite, weight loss Pyelonephritis (E coli), fever -per primary SVT -per cardiology -- Continue PPI, follow-up for colonoscopy in [place]. NELSON STANFORD Apr 03, 2017 13:22
[2017-04-03] MEDS ORDERED: MAGNESIUM SULFATE 4GM 100 ML IV ONE (15:00)
--- NOTE | 2017-04-03 15:00 | CARD ---
APPROVED REPORT EXAM: Two-dimensional and M-mode echocardiogram with Doppler and color Doppler. Other Information Quality : Good INDICATION Dyspnea 2D DIMENSIONS RVDd2.7 (2.9-3.5cm)Left Atrium(2D)4.0 (1.6-4.0cm) IVSd1.2 (0.7-1.1cm)Aortic Root(2D)2.3 (2.0-3.7cm) LVDd4.3 (3.9-5.9cm)LVOT Diameter2.0 (1.8-2.4cm) PWd1.0 (0.7-1.1cm)LVDs2.9 (2.5-4.0cm) FS (%) 32.3 %SV50.8 ml LVEF(%)60.8 (>50%) Aortic Valve AoV Peak Frank.105.1cm/sAoV VTI15.8cm AO Peak GR.4.4mmHgLVOT Peak Frank.75.9cm/s LVOT VTI 11.56cmAO Mean GR.3mmHg SARAY (VMAX)2.64xk6QYH (VTI)2.34cm2 Mitral Valve MV E Peak Gr.119mmHg Tricuspid Valve TR P. [id number]/sRAP [id number] TR Peak Gr.[id number] Pulmonary Vein S1 Bijarapq44.0cm/sD2 Bkzkotlv00.9cm/s LEFT VENTRICLE The left ventricle is normal size. There is mild concentric left ventricular hypertrophy. Severe LV d ysfunction. EF 30%. There is severe hypokinesis of the anterior/stanley-septal issa. RIGHT VENTRICLE The right ventricle is normal size. The right ventricular systolic function is normal. ATRIA The left atrium is mildly dilated. The right atrium size is normal. The interatrial septum is intact with no evidence for an atrial septal defect or patent foramen ovale as noted on 2-D or Doppler imagi ng. AORTIC VALVE The aortic valve is calcified but opens well. Doppler and Color Flow revealed trace aortic regurgitat ion. There is no significant aortic valvular stenosis. MITRAL VALVE Severe posterior leaflet restriction. There is no evidence of mitral valve prolapse. There is no mitr al valve stenosis. Doppler and Color-flow revealed severe mitral regurgitation. TRICUSPID VALVE The tricuspid valve is normal in structure and function. Doppler and Color Flow revealed mild tricusp id regurgitation. There is moderate pulmonary hypertension. The PA pressure was estimated at 52 mmHg. There is no tricuspid valve stenosis. PULMONIC VALVE Doppler and Color Flow revealed mild pulmonic valvular regurgitation. There is no pulmonic valvular s tenosis. GREAT VESSELS The aortic root is normal in size. The ascending aorta is normal in size. The IVC is dilated and mallorie apses <50% with inspiration. PERICARDIAL EFFUSION There is no evidence of significant pericardial effusion. Critical Notification Critical Value: No <Conclusion> Left ventricle systolic function is normal. The Ejection Fraction is 55-60%. Severe LV dysfunction. EF 30%. There is severe hypokinesis of the anterior/stanley-septal issa. Doppler and Color-flow revealed severe mitral regurgitation. Doppler and Color Flow revealed mild tricuspid regurgitation. There is moderate pulmonary hypertensi on. The PA pressure was estimated at 52 mmHg.
[2017-04-03] MEDS: IPRATRPIUM/ALBUTEROL 0.5/2.5MG 3 ML NEBU. NEB SCH ×2 (16:00→20:03)
--- NOTE | 2017-04-03 16:00 | EKG ---
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
[2017-04-03] MEDS: CARVEDILOL 12.5 MG TABLET. PO SCH (17:13)
[2017-04-03] MEDS ORDERED: hydrALAZINE 20 MG/ML VIAL. IVP PRN (19:00)
[2017-04-03] MEDS ORDERED: LABETALOL 20 MG/4 ML DISP.SYRIN. IVP PRN (19:45)
[2017-04-03] MEDS ORDERED: IOHEXOL 300 MG/ML 75 ML VIAL IV ONE (20:00)
[2017-04-03] MEDS ORDERED: CONTRAST GIVEN MC PRN (20:00)
[2017-04-03 20:14] LABS: HCO3 ABG 16 mmol/L (21-28); PCO2 ABG 21 mmHg (35-46); PO2 ABG 67 mmHg (75-108); SAT O2 ABG 94 % (92-99)
[2017-04-03 20:22] LABS: FIO2 ABG 28
[2017-04-03] MEDS ORDERED: FUROSEMIDE 40 MG/4 ML VIAL. IVP ONE (21:30)
[2017-04-03 21:32] LABS: CKMB MASS 0.6 ng/mL (0.0-3.6); CREATINE KINASE 41 U/L (26-192)
--- NOTE | 2017-04-03 21:46 | RAD ---
EXAM: CT angiography of the chest with intravenous contrast. HISTORY: Nausea. Chills. Sepsis. Tachycardia. Shortness of air. TECHNIQUE: Computed tomographic images of the chest were obtained following the administration of 75 cc Omnipaque 300 intravenous contrast according to angiography protocol. Multiplanar reformatting was performed and 3-dimensional maximum intensity projection images were obtained. *One or more of the following individualized dose reduction techniques were utilized for this examination: 1. Automated exposure control. 2. Adjustment of the mA and/or kV according to patient size. 3. Use of iterative reconstruction technique. COMPARISON: None. FINDINGS: There is no convincing pulmonary embolism, with slightly limited evaluation of the lower lobe subsegmental branches due to motion. There are prominent central pulmonary arteries, suggesting a component of chronic pulmonary hypertension. There is cardiomegaly. There is no aortic aneurysm or dissection. There is a standard aortic arch branching pattern. There are small bilateral pleural effusions. There is minimal biapical F Awad change with pleural parenchymal scarring. There are innumerable nodular opacities scattered throughout both lungs and there is diffuse septal line thickening. The largest nodular opacities measure approximately 1.0 cm. There is bilateral lower lobe predominant bronchial wall thickening and interstitial infiltrate superimposed on basilar atelectasis. There are prominent mediastinal and hilar lymph nodes, some of which are calcified and consistent with healed granulomatous disease. There is suggestion of left retroperitoneal lymphadenopathy within the upper abdomen, partially excluded from the [id number]. This may be due to volume averaging of the left renal vein. There are prominent air-filled loops of bowel within the upper abdomen. There is no suspicious osseous lesion. IMPRESSION: 1. No convincing evidence of pulmonary embolism, with limited evaluation of the lower lobe subsegmental branches due to motion. 2. Innumerable small nodular opacities scattered throughout both lungs, the largest of which measure approximately 1 cm. These may be infectious or neoplastic. Short-term CT follow-up is recommended to assess for interval change. 3. Small bilateral pleural effusions with bilateral lower lobe infiltrate and atelectasis. 4. Bilateral lower lobe predominant bronchial wall thickening, suggesting the sequela of bronchitis. 5. Cardiomegaly. Electronically signed by: Kamini Laboy MD (04/03/2017 9:42 PM)
[2017-04-03] MEDS: ZOLPIDEM 5 MG TABLET. PO PRN (22:02)
[2017-04-04 03:05] VITALS: BP 151/112
[2017-04-04 05:48] LABS: BASO # 0.1 x10^3/uL (0.0-0.2); BASO % 1 % (0-3); EOS % 0 % (0-3); HEMATOCRIT 26.3 % (36.0-47.0); HEMOGLOBIN 8.9 g/dL (12.0-15.5); LYMPH # 1.9 x10^3/uL (1.0-4.8); LYMPH % 14 % (24-48); MEAN CORPUSCULAR HEMOGLOBIN 32 pg (25-35); MEAN CORPUSCULAR HGB CONC 34 g/dL (31-37); MEAN CORPUSCULAR VOLUME 95 fL (79-100); MONO % 6 % (0-9); NEUT % 79 % (31-73); PLATELET COUNT 414 x10^3/uL (140-400); RED BLOOD COUNT 2.77 x10^6/uL (3.50-5.40); RED CELL DISTRIBUTION WIDTH 19.9 % (11.5-14.5); WHITE BLOOD COUNT 14.2 x10^3/uL (4.0-11.0)
[2017-04-04 07:00] VITALS: BP 131/101
[2017-04-04] MEDS: IPRATRPIUM/ALBUTEROL 0.5/2.5MG 3 ML NEBU. NEB SCH ×4 (07:30→19:25)
[2017-04-04] MEDS: FOLIC/VIT B COMP W-C (RENAL) TABLET. PO SCH (08:37)
[2017-04-04] MEDS: THIAMINE 100 MG TABLET. PO SCH (08:37)
[2017-04-04] MEDS: PANTOPRAZOLE 40 MG TABLET.DR. PO SCH (08:37)
[2017-04-04] MEDS: POTASSIUM CHLORIDE 20 MEQ TABLET.ER. PO SCH (08:38)
[2017-04-04] MEDS: CARVEDILOL 12.5 MG TABLET. PO SCH ×2 (08:38→17:16)
[2017-04-04] MEDS ORDERED: LISINOPRIL 40 MG TABLET. PO SCH (09:00)
[2017-04-04 11:00] VITALS: BP 111/82
[2017-04-04] MEDS ORDERED: FUROSEMIDE 20 MG TABLET PO SCH (11:00)
[2017-04-04 11:43] LABS: CREATININE 0.8 mg/dL (0.6-1.0)
--- NOTE | 2017-04-04 12:01 | PDOC ---
PROGRESS NOTES Subjective Subjective The patient looks and feels better. Objective Objective Vital Signs Date Time Temp Pulse Resp B/P (MAP) Pulse Ox O2 Delivery O2 Flow Rate FiO2 04/04/17 11:15 100 Nasal Cannula 2.0 04/04/17 08:38 114 131/101 04/04/17 03:05 98.1 20 98.1 Intake and Output 04/04/17 07:00 Intake Total 2250 ml Output Total 3600 ml Balance -1350 ml Intake Oral 1200 ml IV Total 1050 ml Output Urine Total 3600 ml # Bowel Movements 1 Physical Exam Abdomen: Normal bowel sounds Heart: Regular rate General: No acute distress Lungs: Clear to auscultation Assessment Assessment Problems Medical Problems: (1) Acute pyelonephritis Status: Acute (2) Hypokalemia Status: Acute (3) Macrocytic anemia Status: Acute (4) Severe protein-calorie malnutrition Status: Acute (5) Urinary tract infection 1. Sinus tachycardia. reactive due to multiple contributors. Significantly improved. 2. Fever/UTI/pyelonephritis/sepsis/bacteremia. Antibiotics as per the primary service. 3. Alcoholism/tobaccoism 4. Acute anemia: initially at 5.6, Post transfusion Hgb 8.1. Continuing to monitor. 5. HTN: Improved. 6. Protein malnutrition 7. Hx of bipolar disorder: on lithium and Seroquel. 8. Possible mild inferior wall hypokinesis on echo. Continue medical treatment. With follow up with her physician to [place] and will require further ischemic evaluation there. Comment Review of Relevant I have reviewed the following items rick (where applicable) has been applied. Labs Laboratory Tests Test 04/03/17 07:30 04/03/17 11:00 04/03/17 20:00 04/03/17 20:30 White Blood Count 13.3 x10^3/uL (4.0-11.0) Red Blood Count 2.56 x10^6/uL (3.50-5.40) Hemoglobin 8.1 g/dL (12.0-15.5) Hematocrit 24.2 % (36.0-47.0) Mean Corpuscular Volume 95 fL (79-100) Mean Corpuscular Hemoglobin 32 pg (25-35) Mean Corpuscular Hemoglobin Concent 33 g/dL (31-37) Red Cell Distribution Width 19.8 % (11.5-14.5) Platelet Count 326 x10^3/uL (140-400) Neutrophils (%) (Auto) 84 % (31-73) Lymphocytes (%) (Auto) 11 % (24-48) Monocytes (%) (Auto) 5 % (0-9) Eosinophils (%) (Auto) 0 % (0-3) Basophils (%) (Auto) 0 % (0-3) Neutrophils # (Auto) 11.1 x10^3uL (1.8-7.7) Lymphocytes # (Auto) 1.5 x10^3/uL (1.0-4.8) Monocytes # (Auto) 0.6 x10^3/uL (0.0-1.1) Eosinophils # (Auto) 0.0 x10^3/uL (0.0-0.7) Basophils # (Auto) 0.0 x10^3/uL (0.0-0.2) Sodium Level 138 mmol/L (136-145) Potassium Level 4.1 mmol/L (3.5-5.1) Chloride Level 106 mmol/L (98-107) Carbon Dioxide Level 23 mmol/L (21-32) Anion Gap 9 (6-14) Blood Urea Nitrogen 5 mg/dL (7-20) Creatinine 0.7 mg/dL (0.6-1.0) Estimated GFR (Cockcroft-Gault) 108.5 Glucose Level 98 mg/dL (70-99) Calcium Level 8.6 mg/dL (8.5-10.1) Magnesium Level 1.4 mg/dL (1.8-2.4) LC-Pej-P-Type Natriuretic Peptide 21058 pg/mL (0-124) Triglycerides Level 140 mg/dL (0-150) Cholesterol Level 153 mg/dL (0-200) LDL Cholesterol, Calculated 103 mg/dL (0-100) VLDL Cholesterol, Calculated 28 mg/dL (0-40) Non-HDL Cholesterol Calculated 131 mg/dL (0-129) HDL Cholesterol 22 mg/dL (40-60) Cholesterol/HDL Ratio 7.0 Stool Occult Blood Negative (NEG) O2 Saturation 94 % (92-99) Arterial Blood pH 7.50 (7.35-7.45) Arterial Blood pCO2 at Patient Temp 21 mmHg (35-46) Arterial Blood pO2 at Patient Temp 67 mmHg (75-108) Arterial Blood HCO3 16 mmol/L (21-28) Arterial Blood Base Excess -5 mmol/L (-3-3) FiO2 28 Creatine Kinase 41 U/L (26-192) Creatine Kinase MB (Mass) 0.6 ng/mL (0.0-3.6) Creatine Kinase MB Relative Index % (0-4) Test 04/03/17 20:35 04/04/17 00:15 04/04/17 05:00 04/04/17 10:25 Troponin I Quantitative 0.024 ng/mL (0.000-0.055) < 0.017 ng/mL (0.000-0.055) < 0.017 ng/mL (0.000-0.055) White Blood Count 14.2 x10^3/uL (4.0-11.0) Red Blood Count 2.77 x10^6/uL (3.50-5.40) Hemoglobin 8.9 g/dL (12.0-15.5) Hematocrit 26.3 % (36.0-47.0) Mean Corpuscular Volume 95 fL (79-100) Mean Corpuscular Hemoglobin 32 pg (25-35) Mean Corpuscular Hemoglobin Concent 34 g/dL (31-37) Red Cell Distribution Width 19.9 % (11.5-14.5) Platelet Count 414 x10^3/uL (140-400) Neutrophils (%) (Auto) 79 % (31-73) Lymphocytes (%) (Auto) 14 % (24-48) Monocytes (%) (Auto) 6 % (0-9) Eosinophils (%) (Auto) 0 % (0-3) Basophils (%) (Auto) 1 % (0-3) Neutrophils # (Auto) 11.2 x10^3uL (1.8-7.7) Lymphocytes # (Auto) 1.9 x10^3/uL (1.0-4.8) Monocytes # (Auto) 0.9 x10^3/uL (0.0-1.1) Eosinophils # (Auto) 0.0 x10^3/uL (0.0-0.7) Basophils # (Auto) 0.1 x10^3/uL (0.0-0.2) Magnesium Level 2.5 mg/dL (1.8-2.4) Sodium Level 136 mmol/L (136-145) Potassium Level 4.0 mmol/L (3.5-5.1) Chloride Level 101 mmol/L (98-107) Carbon Dioxide Level 25 mmol/L (21-32) Anion Gap 10 (6-14) Blood Urea Nitrogen 6 mg/dL (7-20) Creatinine 0.8 mg/dL (0.6-1.0) Estimated GFR (Cockcroft-Gault) 93.0 Glucose Level 111 mg/dL (70-99) Calcium Level 9.0 mg/dL (8.5-10.1) Laboratory Tests Test 04/03/17 20:00 04/03/17 20:30 04/03/17 20:35 04/04/17 00:15 O2 Saturation 94 % (92-99) Arterial Blood pH 7.50 (7.35-7.45) Arterial Blood pCO2 at Patient Temp 21 mmHg (35-46) Arterial Blood pO2 at Patient Temp 67 mmHg (75-108) Arterial Blood HCO3 16 mmol/L (21-28) Arterial Blood Base Excess -5 mmol/L (-3-3) FiO2 28 Creatine Kinase 41 U/L (26-192) Creatine Kinase MB (Mass) 0.6 ng/mL (0.0-3.6) Creatine Kinase MB Relative Index % (0-4) Troponin I Quantitative 0.024 ng/mL (0.000-0.055) < 0.017 ng/mL (0.000-0.055) Test 04/04/17 05:00 04/04/17 10:25 White Blood Count 14.2 x10^3/uL (4.0-11.0) Red Blood Count 2.77 x10^6/uL (3.50-5.40) Hemoglobin 8.9 g/dL (12.0-15.5) Hematocrit 26.3 % (36.0-47.0) Mean Corpuscular Volume 95 fL (79-100) Mean Corpuscular Hemoglobin 32 pg (25-35) Mean Corpuscular Hemoglobin Concent 34 g/dL (31-37) Red Cell Distribution Width 19.9 % (11.5-14.5) Platelet Count 414 x10^3/uL (140-400) Neutrophils (%) (Auto) 79 % (31-73) Lymphocytes (%) (Auto) 14 % (24-48) Monocytes (%) (Auto) 6 % (0-9) Eosinophils (%) (Auto) 0 % (0-3) Basophils (%) (Auto) 1 % (0-3) Neutrophils # (Auto) 11.2 x10^3uL (1.8-7.7) Lymphocytes # (Auto) 1.9 x10^3/uL (1.0-4.8) Monocytes # (Auto) 0.9 x10^3/uL (0.0-1.1) Eosinophils # (Auto) 0.0 x10^3/uL (0.0-0.7) Basophils # (Auto) 0.1 x10^3/uL (0.0-0.2) Magnesium Level 2.5 mg/dL (1.8-2.4) Troponin I Quantitative < 0.017 ng/mL (0.000-0.055) Sodium Level 136 mmol/L (136-145) Potassium Level 4.0 mmol/L (3.5-5.1) Chloride Level 101 mmol/L (98-107) Carbon Dioxide Level 25 mmol/L (21-32) Anion Gap 10 (6-14) Blood Urea Nitrogen 6 mg/dL (7-20) Creatinine 0.8 mg/dL (0.6-1.0) Estimated GFR (Cockcroft-Gault) 93.0 Glucose Level 111 mg/dL (70-99) Calcium Level 9.0 mg/dL (8.5-10.1) Microbiology 03/30/17 Blood Culture - Final, Complete 03/30/17 Blood Culture Result 1 (RENÉ) - Final, Complete 03/30/17 Urine Culture - Final, Complete 03/30/17 Urine Culture Result 1 (RENÉ) - Final, Complete 03/30/17 Antimicrobic Susceptibility - Final, Complete Medications Current Medications Sodium Chloride 1,000 ml @ 1,095 mls/hr Q55M IV Last administered on 18:12; Start 03/30/17 at 15:09; Stop 03/30/17 at 17:09; Status DC Acetaminophen (Tylenol) 1,000 mg 1X ONCE PO Last administered on 03/30/17 15: 34; Start 03/30/17 at 15:30; Stop 03/30/17 at 15:31; Status DC Potassium Chloride (Klor-Con) 40 meq 1X ONCE PO Last administered on 16:32; Start 03/30/17 at 16:30; Stop 03/30/17 at 16:31; Status DC Iohexol (Omnipaque 300 Mg/ml) 75 ml 1X ONCE IV Last administered on 03/30/17 16:36; Start 03/30/17 at 16:30; Stop 03/30/17 at 16:31; Status DC Info (Do NOT chart on this entry -- for MONITORING) 1 each PRN DAILY PRN MC SEE COMMENTS; Start 03/30/17 at 16:30; Stop 04/01/17 at 16:29; Status DC Ceftriaxone Sodium 1 gm/ Sodium Chloride 50 ml @ 100 mls/hr Q24H IV Last administered on 04/03/17 22:02; Start 03/30/17 at 18:00 Ondansetron HCl (Zofran) 4 mg PRN Q8HRS PRN IV NAUSEA/VOMITING; Start 03/30/17 at 17:15; Stop 03/31/17 at 17:14; Status DC Fentanyl Citrate (Fentanyl 2ml Vial) 50 mcg PRN Q2HR PRN IV PAIN Last administered on 03/31/17 06:28; Start 03/30/17 at 17:15; Stop 03/31/17 at 17:14 ; Status DC Sodium Chloride 1,000 ml @ 150 mls/hr Q6H40M IV ; Start 03/30/17 at 17:08; Stop 03/30/17 at 18:04; Status DC Acetaminophen (Tylenol) 650 mg PRN Q4HRS PRN PO FEVER Last administered on 03/30 22:40; Start 03/30/17 at 17:15; Stop 03/31/17 at 17:14; Status DC Magnesium Sulfate/ Dextrose 50 ml @ 25 mls/hr 1X ONCE IV Last administered on 03/30/17 19:21; Start 03/30/17 at 18:00; Stop 03/30/17 at 19:59; Status DC Thiamine Mononitrate (Vitamin B-1) 100 mg DAILY PO Last administered on 08:37; Start 03/30/17 at 18:30 Vitamin B Complex/ Vitamin C (Marivel-Judah) 1 tab DAILY PO Last administered on 08:37; Start 03/30/17 at 18:30 Potassium Chloride (KCl Oral Soln) 40 meq 1X ONCE PO Last administered on 03/30 18:38; Start 03/30/17 at 18:30; Stop 03/30/17 at 18:43; Status DC Potassium Chloride (KCl Oral Soln) 20 meq DAILY PO ; Start 03/31/17 at 09:00; Stop 03/31/17 at 09:00; Status DC Potassium Chloride/Sodium Chloride 1,000 ml @ 75 mls/hr [id number] IV Last administered on 04/04/17 06:36; Start 03/30/17 at 19:30; Stop 04/04/17 at 11:02; Status DC Nicotine (Nicoderm Cq 7mg) 1 patch PRN DAILY PRN TD SMOKING CESSATION; Start at 18:15 Zolpidem Tartrate (Ambien) 5 mg PRN QHS PRN PO INSOMNIA Last administered on 22:02; Start 03/30/17 at 20:15 Potassium Chloride (Klor-Con) 20 meq [id number] PO Last administered on 08:38; Start 03/31/17 at 08:00 Potassium Chloride (Klor-Con) 40 meq 1X ONCE PO Last administered on 07:39; Start 03/31/17 at 07:00; Stop 03/31/17 at 07:02; Status DC Polyethylene Glycol (miraLAX PACKET) 17 gm 1X ONCE PO Last administered on 14:22; Start 03/31/17 at 13:45; Stop 03/31/17 at 13:46; Status DC Polyethylene Glycol (miraLAX PACKET) 17 gm PRN DAILY PRN PO CONSTIPATION; Start 03/31/17 at 13:45 Morphine Sulfate (Morphine Ir) 15 mg PRN Q4HRS PRN PO PAIN Last administered on 04/03/17 22:02; Start 03/31/17 at 13:45 Magnesium Sulfate/ Dextrose 100 ml @ 25 mls/hr 1X ONCE IV Last administered on 03/31/17 15:15; Start 03/31/17 at 15:00; Stop 03/31/17 at 18:59; Status DC Magnesium Sulfate/ Dextrose 100 ml @ 25 mls/hr 1X ONCE IV Last administered on 04/01/17 09:43; Start 04/01/17 at 09:00; Stop 04/01/17 at 12:59; Status DC Pantoprazole Sodium (Protonix) 40 mg DAILYAC PO Last administered on 04/04/17 08:37; Start 04/02/17 at 11:30 Acetaminophen (Tylenol) 650 mg PRN Q4HRS PRN PO MILD PAIN / TEMP Last administered on 04/01/17 16:44; Start 04/01/17 at 16:45 Carvedilol (Coreg) 6.25 mg BIDWMEALS PO Last administered on 04/03/17 09:39; Start 04/03/17 at 10:00; Stop 04/03/17 at 15:07; Status DC Lisinopril (Prinivil) 20 mg DAILY PO Last administered on 04/03/17 12:35; Start 04/03/17 at 12:00; Stop 04/03/17 at 19:03; Status DC Magnesium Sulfate/ Dextrose 100 ml @ 25 mls/hr 1X ONCE IV Last administered on 04/03/17 15:35; Start 04/03/17 at 15:00; Stop 04/03/17 at 18:59; Status DC Carvedilol (Coreg) 12.5 mg BIDWMEALS PO Last administered on 04/04/17 08:38; Start 04/03/17 at 17:00 Albuterol/ Ipratropium (Duoneb) 3 ml RTQID NEB Last administered on 04/04/17 11 :14; Start 04/03/17 at 16:00 Hydralazine HCl (Apresoline) 10 mg PRN Q4HRS PRN IVP ELEVATED BP, SEE COMMENTS Last administered on 04/03/17 19:01; Start 04/03/17 at 19:00 Lisinopril (Prinivil) 40 mg DAILY PO Last administered on 04/04/17 08:38; Start 04/04/17 at 09:00 Labetalol HCl (Normodyne) 20 mg PRN Q2HR PRN IVP HYPERTENSION, SEE COMMENTS; Start 04/03/17 at 19:45 Iohexol (Omnipaque 300 Mg/ml) 75 ml 1X ONCE IV Last administered on 04/03/17 21:11; Start 04/03/17 at 20:00; Stop 04/03/17 at 20:01; Status DC Info (Do NOT chart on this entry -- for MONITORING) 1 each PRN DAILY PRN MC SEE COMMENTS; Start 04/03/17 at 20:00; Stop 04/05/17 at 19:59 Furosemide (Lasix) 40 mg 1X ONCE IVP Last administered on 04/03/17 22:02; Start 04/03/17 at 21:30; Stop 04/03/17 at 21:31; Status DC Furosemide (Lasix) 20 mg DAILY PO ; Start 04/04/17 at 11:00 Active Scripts Active Reported Seroquel (Quetiapine Fumarate) 100 Mg Tablet 1 Tab PO QHS Vitals/I & O Vital Sign - Last 24 Hours 04/03/17 04/03/17 04/03/17 04/03/17 12:35 15:00 15:57 17:13 Temp 98.9 98.9 Pulse 117 112 121 Resp 21 B/P (MAP) 141/107 146/96 (113) 152/121 Pulse Ox 98 98 O2 Delivery Room Air Nasal Cannula O2 Flow Rate 2.0 04/03/17 04/03/17 04/03/17 04/03/17 17:35 18:59 19:01 20:00 Temp 99.7 99.7 Pulse 121 121 B/P (MAP) 145/111 (122) 145/111 Pulse Ox 94 94 O2 Delivery Nasal Cannula Room Air Nasal Cannula O2 Flow Rate 2.0 2.0 2.0 04/03/17 04/03/17 04/03/17 04/03/17 20:00 20:00 22:02 23:13 Temp 99.3 97.5 99.3 97.5 Pulse 120 117 Resp 22 22 21 B/P (MAP) 144/105 (118) 161/121 (134) Pulse Ox 97 97 100 O2 Delivery Room Air Nasal Cannula Nasal Cannula Room Air O2 Flow Rate 2.0 04/04/17 04/04/17 04/04/17 04/04/17 03:05 07:31 08:38 08:38 Temp 98.1 98.1 Pulse 114 114 114 Resp 20 B/P (MAP) 151/112 (125) 131/101 131/101 Pulse Ox 95 100 O2 Delivery Room Air Nasal Cannula O2 Flow Rate 2.0 04/04/17 11:15 Pulse Ox 100 O2 Delivery Nasal Cannula O2 Flow Rate 2.0 Intake and Output 04/03/17 04/03/17 04/04/17 15:00 23:00 07:00 Intake Total 350 ml 900 ml 1000 ml Output Total 750 ml 2850 ml Balance 350 ml 150 ml -1850 ml ASHLEIGH BHATIA MD Apr 04, 2017 12:01
--- NOTE | 2017-04-04 13:16 | PDOC ---
PROGRESS NOTES Chief Complaint Chief Complaint lactic acidosis, no leukocytosis, UTI with bacteremia, Ecoli pyelonephritis hypokalemia moderate malnutrition tobacco anemia of acute illness, EtOH abuse, acute systolic CHF ef 30% sepsis SVT wtih sepsis plan: cont iv ceftriaxone hb ok for now, fu with GI, post 2u PRBC yesterday. fobt neg check EKG showed SVT as reported, card consulted check CXR, echo done add lisinopril, coreg dc ivf, sob idania with lasix x1 on 04/03, lasix 20mg po daily CTA done showed neg PE, but bl lung small nodules, will get pulm consult pt cont having low grade fever, wbc high x2 days, if so , need to rule out endocarditis? History of Present Illness History of Present Illness still abd pain and flank pain normal stools more anemic today, plan 2 u PRBC EtOH abuse discussed hepatic dysfunction noted, consult GI good PO intake weakness persists still fever, tachycardia, exertional sob, HTN 04/03 Vitals Vitals Vital Signs Date Time Temp Pulse Resp B/P (MAP) Pulse Ox O2 Delivery O2 Flow Rate FiO2 04/04/17 11:15 100 Nasal Cannula 2.0 04/04/17 11:00 98.7 121 22 111/82 (92) 98.7 Physical Exam General: Alert, Oriented X3, Cooperative, No acute distress Heart: Regular rate Lungs: Clear Abdomen: Normal bowel sounds Extremities: No cyanosis, No edema Skin: No breakdown, No significant lesion Labs LABS Laboratory Tests Test 04/03/17 20:00 04/03/17 20:30 04/03/17 20:35 04/04/17 00:15 O2 Saturation 94 % (92-99) Arterial Blood pH 7.50 (7.35-7.45) Arterial Blood pCO2 at Patient Temp 21 mmHg (35-46) Arterial Blood pO2 at Patient Temp 67 mmHg (75-108) Arterial Blood HCO3 16 mmol/L (21-28) Arterial Blood Base Excess -5 mmol/L (-3-3) FiO2 28 Creatine Kinase 41 U/L (26-192) Creatine Kinase MB (Mass) 0.6 ng/mL (0.0-3.6) Creatine Kinase MB Relative Index % (0-4) Troponin I Quantitative 0.024 ng/mL (0.000-0.055) < 0.017 ng/mL (0.000-0.055) Test 04/04/17 05:00 04/04/17 10:25 White Blood Count 14.2 x10^3/uL (4.0-11.0) Red Blood Count 2.77 x10^6/uL (3.50-5.40) Hemoglobin 8.9 g/dL (12.0-15.5) Hematocrit 26.3 % (36.0-47.0) Mean Corpuscular Volume 95 fL (79-100) Mean Corpuscular Hemoglobin 32 pg (25-35) Mean Corpuscular Hemoglobin Concent 34 g/dL (31-37) Red Cell Distribution Width 19.9 % (11.5-14.5) Platelet Count 414 x10^3/uL (140-400) Neutrophils (%) (Auto) 79 % (31-73) Lymphocytes (%) (Auto) 14 % (24-48) Monocytes (%) (Auto) 6 % (0-9) Eosinophils (%) (Auto) 0 % (0-3) Basophils (%) (Auto) 1 % (0-3) Neutrophils # (Auto) 11.2 x10^3uL (1.8-7.7) Lymphocytes # (Auto) 1.9 x10^3/uL (1.0-4.8) Monocytes # (Auto) 0.9 x10^3/uL (0.0-1.1) Eosinophils # (Auto) 0.0 x10^3/uL (0.0-0.7) Basophils # (Auto) 0.1 x10^3/uL (0.0-0.2) Magnesium Level 2.5 mg/dL (1.8-2.4) Troponin I Quantitative < 0.017 ng/mL (0.000-0.055) Sodium Level 136 mmol/L (136-145) Potassium Level 4.0 mmol/L (3.5-5.1) Chloride Level 101 mmol/L (98-107) Carbon Dioxide Level 25 mmol/L (21-32) Anion Gap 10 (6-14) Blood Urea Nitrogen 6 mg/dL (7-20) Creatinine 0.8 mg/dL (0.6-1.0) Estimated GFR (Cockcroft-Gault) 93.0 Glucose Level 111 mg/dL (70-99) Calcium Level 9.0 mg/dL (8.5-10.1) Review of Systems Review of Systems no chills, chest pain Assessment and Plan Assessmemt and Plan Problems Medical Problems: (1) Acute pyelonephritis Status: Acute (2) Hypokalemia Status: Acute (3) Macrocytic anemia Status: Acute (4) Severe protein-calorie malnutrition Status: Acute (5) Urinary tract infection Status: Acute Problems: Comment Review of Relevant I have reviewed the following items rick (where applicable) has been applied. Labs Laboratory Tests Test 04/03/17 07:30 04/03/17 11:00 04/03/17 20:00 04/03/17 20:30 White Blood Count 13.3 x10^3/uL (4.0-11.0) Red Blood Count 2.56 x10^6/uL (3.50-5.40) Hemoglobin 8.1 g/dL (12.0-15.5) Hematocrit 24.2 % (36.0-47.0) Mean Corpuscular Volume 95 fL (79-100) Mean Corpuscular Hemoglobin 32 pg (25-35) Mean Corpuscular Hemoglobin Concent 33 g/dL (31-37) Red Cell Distribution Width 19.8 % (11.5-14.5) Platelet Count 326 x10^3/uL (140-400) Neutrophils (%) (Auto) 84 % (31-73) Lymphocytes (%) (Auto) 11 % (24-48) Monocytes (%) (Auto) 5 % (0-9) Eosinophils (%) (Auto) 0 % (0-3) Basophils (%) (Auto) 0 % (0-3) Neutrophils # (Auto) 11.1 x10^3uL (1.8-7.7) Lymphocytes # (Auto) 1.5 x10^3/uL (1.0-4.8) Monocytes # (Auto) 0.6 x10^3/uL (0.0-1.1) Eosinophils # (Auto) 0.0 x10^3/uL (0.0-0.7) Basophils # (Auto) 0.0 x10^3/uL (0.0-0.2) Sodium Level 138 mmol/L (136-145) Potassium Level 4.1 mmol/L (3.5-5.1) Chloride Level 106 mmol/L (98-107) Carbon Dioxide Level 23 mmol/L (21-32) Anion Gap 9 (6-14) Blood Urea Nitrogen 5 mg/dL (7-20) Creatinine 0.7 mg/dL (0.6-1.0) Estimated GFR (Cockcroft-Gault) 108.5 Glucose Level 98 mg/dL (70-99) Calcium Level 8.6 mg/dL (8.5-10.1) Magnesium Level 1.4 mg/dL (1.8-2.4) SH-Nza-Q-Type Natriuretic Peptide 46848 pg/mL (0-124) Triglycerides Level 140 mg/dL (0-150) Cholesterol Level 153 mg/dL (0-200) LDL Cholesterol, Calculated 103 mg/dL (0-100) VLDL Cholesterol, Calculated 28 mg/dL (0-40) Non-HDL Cholesterol Calculated 131 mg/dL (0-129) HDL Cholesterol 22 mg/dL (40-60) Cholesterol/HDL Ratio 7.0 Stool Occult Blood Negative (NEG) O2 Saturation 94 % (92-99) Arterial Blood pH 7.50 (7.35-7.45) Arterial Blood pCO2 at Patient Temp 21 mmHg (35-46) Arterial Blood pO2 at Patient Temp 67 mmHg (75-108) Arterial Blood HCO3 16 mmol/L (21-28) Arterial Blood Base Excess -5 mmol/L (-3-3) FiO2 28 Creatine Kinase 41 U/L (26-192) Creatine Kinase MB (Mass) 0.6 ng/mL (0.0-3.6) Creatine Kinase MB Relative Index % (0-4) Test 04/03/17 20:35 04/04/17 00:15 04/04/17 05:00 04/04/17 10:25 Troponin I Quantitative 0.024 ng/mL (0.000-0.055) < 0.017 ng/mL (0.000-0.055) < 0.017 ng/mL (0.000-0.055) White Blood Count 14.2 x10^3/uL (4.0-11.0) Red Blood Count 2.77 x10^6/uL (3.50-5.40) Hemoglobin 8.9 g/dL (12.0-15.5) Hematocrit 26.3 % (36.0-47.0) Mean Corpuscular Volume 95 fL (79-100) Mean Corpuscular Hemoglobin 32 pg (25-35) Mean Corpuscular Hemoglobin Concent 34 g/dL (31-37) Red Cell Distribution Width 19.9 % (11.5-14.5) Platelet Count 414 x10^3/uL (140-400) Neutrophils (%) (Auto) 79 % (31-73) Lymphocytes (%) (Auto) 14 % (24-48) Monocytes (%) (Auto) 6 % (0-9) Eosinophils (%) (Auto) 0 % (0-3) Basophils (%) (Auto) 1 % (0-3) Neutrophils # (Auto) 11.2 x10^3uL (1.8-7.7) Lymphocytes # (Auto) 1.9 x10^3/uL (1.0-4.8) Monocytes # (Auto) 0.9 x10^3/uL (0.0-1.1) Eosinophils # (Auto) 0.0 x10^3/uL (0.0-0.7) Basophils # (Auto) 0.1 x10^3/uL (0.0-0.2) Magnesium Level 2.5 mg/dL (1.8-2.4) Sodium Level 136 mmol/L (136-145) Potassium Level 4.0 mmol/L (3.5-5.1) Chloride Level 101 mmol/L (98-107) Carbon Dioxide Level 25 mmol/L (21-32) Anion Gap 10 (6-14) Blood Urea Nitrogen 6 mg/dL (7-20) Creatinine 0.8 mg/dL (0.6-1.0) Estimated GFR (Cockcroft-Gault) 93.0 Glucose Level 111 mg/dL (70-99) Calcium Level 9.0 mg/dL (8.5-10.1) Laboratory Tests Test 04/03/17 20:00 04/03/17 20:30 04/03/17 20:35 04/04/17 00:15 O2 Saturation 94 % (92-99) Arterial Blood pH 7.50 (7.35-7.45) Arterial Blood pCO2 at Patient Temp 21 mmHg (35-46) Arterial Blood pO2 at Patient Temp 67 mmHg (75-108) Arterial Blood HCO3 16 mmol/L (21-28) Arterial Blood Base Excess -5 mmol/L (-3-3) FiO2 28 Creatine Kinase 41 U/L (26-192) Creatine Kinase MB (Mass) 0.6 ng/mL (0.0-3.6) Creatine Kinase MB Relative Index % (0-4) Troponin I Quantitative 0.024 ng/mL (0.000-0.055) < 0.017 ng/mL (0.000-0.055) Test 04/04/17 05:00 04/04/17 10:25 White Blood Count 14.2 x10^3/uL (4.0-11.0) Red Blood Count 2.77 x10^6/uL (3.50-5.40) Hemoglobin 8.9 g/dL (12.0-15.5) Hematocrit 26.3 % (36.0-47.0) Mean Corpuscular Volume 95 fL (79-100) Mean Corpuscular Hemoglobin 32 pg (25-35) Mean Corpuscular Hemoglobin Concent 34 g/dL (31-37) Red Cell Distribution Width 19.9 % (11.5-14.5) Platelet Count 414 x10^3/uL (140-400) Neutrophils (%) (Auto) 79 % (31-73) Lymphocytes (%) (Auto) 14 % (24-48) Monocytes (%) (Auto) 6 % (0-9) Eosinophils (%) (Auto) 0 % (0-3) Basophils (%) (Auto) 1 % (0-3) Neutrophils # (Auto) 11.2 x10^3uL (1.8-7.7) Lymphocytes # (Auto) 1.9 x10^3/uL (1.0-4.8) Monocytes # (Auto) 0.9 x10^3/uL (0.0-1.1) Eosinophils # (Auto) 0.0 x10^3/uL (0.0-0.7) Basophils # (Auto) 0.1 x10^3/uL (0.0-0.2) Magnesium Level 2.5 mg/dL (1.8-2.4) Troponin I Quantitative < 0.017 ng/mL (0.000-0.055) Sodium Level 136 mmol/L (136-145) Potassium Level 4.0 mmol/L (3.5-5.1) Chloride Level 101 mmol/L (98-107) Carbon Dioxide Level 25 mmol/L (21-32) Anion Gap 10 (6-14) Blood Urea Nitrogen 6 mg/dL (7-20) Creatinine 0.8 mg/dL (0.6-1.0) Estimated GFR (Cockcroft-Gault) 93.0 Glucose Level 111 mg/dL (70-99) Calcium Level 9.0 mg/dL (8.5-10.1) Microbiology 03/30/17 Blood Culture - Final, Complete 03/30/17 Blood Culture Result 1 (RENÉ) - Final, Complete 03/30/17 Urine Culture - Final, Complete 03/30/17 Urine Culture Result 1 (RENÉ) - Final, Complete 03/30/17 Antimicrobic Susceptibility - Final, Complete Medications Current Medications Sodium Chloride 1,000 ml @ 1,095 mls/hr Q55M IV Last administered on 18:12; Start 03/30/17 at 15:09; Stop 03/30/17 at 17:09; Status DC Acetaminophen (Tylenol) 1,000 mg 1X ONCE PO Last administered on 03/30/17 15: 34; Start 03/30/17 at 15:30; Stop 03/30/17 at 15:31; Status DC Potassium Chloride (Klor-Con) 40 meq 1X ONCE PO Last administered on 16:32; Start 03/30/17 at 16:30; Stop 03/30/17 at 16:31; Status DC Iohexol (Omnipaque 300 Mg/ml) 75 ml 1X ONCE IV Last administered on 03/30/17 16:36; Start 03/30/17 at 16:30; Stop 03/30/17 at 16:31; Status DC Info (Do NOT chart on this entry -- for MONITORING) 1 each PRN DAILY PRN MC SEE COMMENTS; Start 03/30/17 at 16:30; Stop 04/01/17 at 16:29; Status DC Ceftriaxone Sodium 1 gm/ Sodium Chloride 50 ml @ 100 mls/hr Q24H IV Last administered on 04/03/17 22:02; Start 03/30/17 at 18:00 Ondansetron HCl (Zofran) 4 mg PRN Q8HRS PRN IV NAUSEA/VOMITING; Start 03/30/17 at 17:15; Stop 03/31/17 at 17:14; Status DC Fentanyl Citrate (Fentanyl 2ml Vial) 50 mcg PRN Q2HR PRN IV PAIN Last administered on 03/31/17 06:28; Start 03/30/17 at 17:15; Stop 03/31/17 at 17:14 ; Status DC Sodium Chloride 1,000 ml @ 150 mls/hr Q6H40M IV ; Start 03/30/17 at 17:08; Stop 03/30/17 at 18:04; Status DC Acetaminophen (Tylenol) 650 mg PRN Q4HRS PRN PO FEVER Last administered on 03/30 22:40; Start 03/30/17 at 17:15; Stop 03/31/17 at 17:14; Status DC Magnesium Sulfate/ Dextrose 50 ml @ 25 mls/hr 1X ONCE IV Last administered on 03/30/17 19:21; Start 03/30/17 at 18:00; Stop 03/30/17 at 19:59; Status DC Thiamine Mononitrate (Vitamin B-1) 100 mg DAILY PO Last administered on 08:37; Start 03/30/17 at 18:30 Vitamin B Complex/ Vitamin C (Marivel-Judah) 1 tab DAILY PO Last administered on 08:37; Start 03/30/17 at 18:30 Potassium Chloride (KCl Oral Soln) 40 meq 1X ONCE PO Last administered on 03/30 18:38; Start 03/30/17 at 18:30; Stop 03/30/17 at 18:43; Status DC Potassium Chloride (KCl Oral Soln) 20 meq DAILY PO ; Start 03/31/17 at 09:00; Stop 03/31/17 at 09:00; Status DC Potassium Chloride/Sodium Chloride 1,000 ml @ 75 mls/hr [id number] IV Last administered on 04/04/17 06:36; Start 03/30/17 at 19:30; Stop 04/04/17 at 11:02; Status DC Nicotine (Nicoderm Cq 7mg) 1 patch PRN DAILY PRN TD SMOKING CESSATION; Start at 18:15 Zolpidem Tartrate (Ambien) 5 mg PRN QHS PRN PO INSOMNIA Last administered on 22:02; Start 03/30/17 at 20:15 Potassium Chloride (Klor-Con) 20 meq [id number] PO Last administered on 08:38; Start 03/31/17 at 08:00 Potassium Chloride (Klor-Con) 40 meq 1X ONCE PO Last administered on 07:39; Start 03/31/17 at 07:00; Stop 03/31/17 at 07:02; Status DC Polyethylene Glycol (miraLAX PACKET) 17 gm 1X ONCE PO Last administered on 14:22; Start 03/31/17 at 13:45; Stop 03/31/17 at 13:46; Status DC Polyethylene Glycol (miraLAX PACKET) 17 gm PRN DAILY PRN PO CONSTIPATION; Start 03/31/17 at 13:45 Morphine Sulfate (Morphine Ir) 15 mg PRN Q4HRS PRN PO PAIN Last administered on 04/03/17 22:02; Start 03/31/17 at 13:45 Magnesium Sulfate/ Dextrose 100 ml @ 25 mls/hr 1X ONCE IV Last administered on 03/31/17 15:15; Start 03/31/17 at 15:00; Stop 03/31/17 at 18:59; Status DC Magnesium Sulfate/ Dextrose 100 ml @ 25 mls/hr 1X ONCE IV Last administered on 04/01/17 09:43; Start 04/01/17 at 09:00; Stop 04/01/17 at 12:59; Status DC Pantoprazole Sodium (Protonix) 40 mg DAILYAC PO Last administered on 04/04/17 08:37; Start 04/02/17 at 11:30 Acetaminophen (Tylenol) 650 mg PRN Q4HRS PRN PO MILD PAIN / TEMP Last administered on 04/01/17 16:44; Start 04/01/17 at 16:45 Carvedilol (Coreg) 6.25 mg BIDWMEALS PO Last administered on 04/03/17 09:39; Start 04/03/17 at 10:00; Stop 04/03/17 at 15:07; Status DC Lisinopril (Prinivil) 20 mg DAILY PO Last administered on 04/03/17 12:35; Start 04/03/17 at 12:00; Stop 04/03/17 at 19:03; Status DC Magnesium Sulfate/ Dextrose 100 ml @ 25 mls/hr 1X ONCE IV Last administered on 04/03/17 15:35; Start 04/03/17 at 15:00; Stop 04/03/17 at 18:59; Status DC Carvedilol (Coreg) 12.5 mg BIDWMEALS PO Last administered on 04/04/17 08:38; Start 04/03/17 at 17:00 Albuterol/ Ipratropium (Duoneb) 3 ml RTQID NEB Last administered on 04/04/17 11 :14; Start 04/03/17 at 16:00 Hydralazine HCl (Apresoline) 10 mg PRN Q4HRS PRN IVP ELEVATED BP, SEE COMMENTS Last administered on 04/03/17 19:01; Start 04/03/17 at 19:00 Lisinopril (Prinivil) 40 mg DAILY PO Last administered on 04/04/17 08:38; Start 04/04/17 at 09:00 Labetalol HCl (Normodyne) 20 mg PRN Q2HR PRN IVP HYPERTENSION, SEE COMMENTS; Start 04/03/17 at 19:45 Iohexol (Omnipaque 300 Mg/ml) 75 ml 1X ONCE IV Last administered on 04/03/17 21:11; Start 04/03/17 at 20:00; Stop 04/03/17 at 20:01; Status DC Info (Do NOT chart on this entry -- for MONITORING) 1 each PRN DAILY PRN MC SEE COMMENTS; Start 04/03/17 at 20:00; Stop 04/05/17 at 19:59 Furosemide (Lasix) 40 mg 1X ONCE IVP Last administered on 04/03/17 22:02; Start 04/03/17 at 21:30; Stop 04/03/17 at 21:31; Status DC Furosemide (Lasix) 20 mg DAILY PO Last administered on 04/04/17 12:10; Start at 11:00 Active Scripts Active Reported Seroquel (Quetiapine Fumarate) 100 Mg Tablet 1 Tab PO QHS Vitals/I & O Vital Sign - Last 24 Hours 04/03/17 04/03/17 04/03/17 04/03/17 15:00 15:57 17:13 17:35 Temp 98.9 98.9 Pulse 112 121 Resp B/P (MAP) 146/96 (113) 152/121 Pulse Ox 98 98 94 O2 Delivery Room Air Nasal Cannula Nasal Cannula O2 Flow Rate 2.0 2.0 04/03/17 04/03/17 04/03/17 04/03/17 18:59 19:01 20:00 20:00 Temp 99.7 99.3 99.7 99.3 Pulse 121 121 120 Resp 22 B/P (MAP) 145/111 (122) 145/111 144/105 (118) Pulse Ox 94 97 O2 Delivery Room Air Nasal Cannula Room Air O2 Flow Rate 2.0 2.0 04/03/17 04/03/17 04/03/17 04/04/17 20:00 22:02 23:13 03:05 Temp 97.5 98.1 97.5 98.1 Pulse 117 114 Resp 20 B/P (MAP) 161/121 (134) 151/112 (125) Pulse Ox 97 100 95 O2 Delivery Nasal Cannula Nasal Cannula Room Air Room Air O2 Flow Rate 2.0 04/04/17 04/04/17 04/04/17 04/04/17 07:00 07:31 08:38 08:38 Temp 98.5 98.5 Pulse 114 114 114 Resp 20 B/P (MAP) 131/101 (111) 131/101 131/101 Pulse Ox 98 100 O2 Delivery Room Air Nasal Cannula O2 Flow Rate 2.0 04/04/17 04/04/17 11:00 11:15 Temp 98.7 98.7 Pulse 121 Resp 22 B/P (MAP) 111/82 (92) Pulse Ox 98 100 O2 Delivery Room Air Nasal Cannula O2 Flow Rate 2.0 Intake and Output 04/03/17 04/03/17 04/04/17 15:00 23:00 07:00 Intake Total 350 ml 900 ml 1000 ml Output Total 750 ml 2850 ml Balance 350 ml 150 ml -1850 ml NAKIA GONZALEZ MD Apr 04, 2017 13:16
[2017-04-04] MEDS: methylPREDNISolone SOD SUCC PF 125 MG/2 ML VIAL. IV SCH ×2 (14:57→21:38)
[2017-04-04] MEDS: diphenhydrAMINE 50 MG/ML VIAL IVP PRN ×2 (14:58→21:37)
[2017-04-04 15:00] VITALS: BP 121/86
[2017-04-04] MEDS: FAMOTIDINE 20 MG/2 ML VIAL IVP SCH ×2 (17:15→21:37)
[2017-04-04 19:59] VITALS: BP 109/77
[2017-04-04] MEDS: MORPHINE IR 15 MG TABLET PO PRN (21:38)
[2017-04-04] MEDS: ZOLPIDEM 5 MG TABLET. PO PRN (21:38)
[2017-04-04 23:59] VITALS: BP 108/76
[2017-04-05 06:17] LABS: BASO % 0 % (0-3); EOS % 0 % (0-3); HEMATOCRIT 24.1 % (36.0-47.0); HEMOGLOBIN 8.2 g/dL (12.0-15.5); LYMPH # 1.2 x10^3/uL (1.0-4.8); LYMPH % 14 % (24-48); MEAN CORPUSCULAR HEMOGLOBIN 32 pg (25-35); MEAN CORPUSCULAR HGB CONC 34 g/dL (31-37); MEAN CORPUSCULAR VOLUME 95 fL (79-100); MONO % 2 % (0-9); NEUT % 84 % (31-73); PLATELET COUNT 450 x10^3/uL (140-400); RED BLOOD COUNT 2.54 x10^6/uL (3.50-5.40); RED CELL DISTRIBUTION WIDTH 18.6 % (11.5-14.5); WHITE BLOOD COUNT 8.6 x10^3/uL (4.0-11.0)
[2017-04-05 07:06] LABS: CALCIUM 8.1 mg/dL (8.5-10.1); CREATININE 0.8 mg/dL (0.6-1.0); POTASSIUM 4.9 mmol/L (3.5-5.1)
[2017-04-05] MEDS: IPRATRPIUM/ALBUTEROL 0.5/2.5MG 3 ML NEBU. NEB SCH (07:54)
== END 2017-04-05 08:10 | disposition left against medical advice (07) | DRG 871 ==
LOC: ER 14:36 → 5 NORTH 16:19
PROVIDERS: ADMIT Internal Medicine; ATTEND Internal Medicine
PROC: 30233N1 Transfusion of Nonautologous Red Blood Cells into Peripheral Vein, Percutaneous Approach (ICD-10-PCS; principal; 2017-04-01)
DX: A41.9 Sepsis, unspecified organism (principal); E43 Unspecified severe protein-calorie malnutrition; I50.21 Acute systolic (congestive) heart failure; I47.1 Supraventricular tachycardia; N10 Acute pyelonephritis; I42.9 Cardiomyopathy, unspecified; Z53.21 Procedure and treatment not carried out due to patient leaving prior to being seen by health care provider; D69.6 Thrombocytopenia, unspecified; I34.0 Nonrheumatic mitral (valve) insufficiency; B96.20 Unspecified Escherichia coli [E. coli] as the cause of diseases classified elsewhere; E87.6 Hypokalemia; F17.210 Nicotine dependence, cigarettes, uncomplicated; F31.9 Bipolar disorder, unspecified; F41.9 Anxiety disorder, unspecified; I11.0 Hypertensive heart disease with heart failure; J44.9 Chronic obstructive pulmonary disease, unspecified; D53.9 Nutritional anemia, unspecified; K21.9 Gastro-esophageal reflux disease without esophagitis; K59.00 Constipation, unspecified; M54.9 Dorsalgia, unspecified; R13.10 Dysphagia, unspecified; K80.20 Calculus of gallbladder without cholecystitis without obstruction; F10.20 Alcohol dependence, uncomplicated; R65.20 Severe sepsis without septic shock; Z82.49 Family history of ischemic heart disease and other diseases of the circulatory system; Z83.3 Family history of diabetes mellitus; Z68.29 Body mass index [BMI] 29.0-29.9, adult
CPT/HCPCS: 36415; 36600; 71010; 71275; 74177; 80048; 80053; 80061; 81001; 82274; 82553; 82805; 83540; 83550; 83605; 83615; 83735; 83880; 84145; 84484; 85007; 85027; 85610; 86850; 86900; 86901; 86920; 87040; 87086; 87186; 87205; 93005; 93306; 94250; 94640; 94760; J0360; J0696; J1200; J1940; J2930; J3010; J3475; J7030; J7060; J7620; P9016; Q9967; S0028; 99285-25